=== PATIENT | male | born 1935 | race Caucasian/White ===

== ENCOUNTER → 2023-03-08 12:48 | Outpatient (CLI) | payer MEDICARE, OTHER, SELFPAY ==
--- NOTE | 2023-03-08 | DI.CT.S_ITS ---
PROCEDURE: CT HEAD/BRAIN WO CON INDICATIONS: SUBDURAL HEMATOMA TECHNIQUE: Noncontrast 4.5 mm thick angled axial sections acquired from the foramen magnum to the vertex, with coronal and sagittal reformats. For radiation dose reduction, the following was used: automated exposure control, adjustment of mA and/or kV according to patient size. COMPARISON: Outside Facility, RG, CT HEAD W/O CONTRAST, 12/20/2022, 10:27. Outside Facility, RG, CT HEAD W/O CONTRAST, 11/07/2022, 15:22. Outside Facility, RG, CT HEAD W/O CONTRAST, 10/05/2022, 13:26. Outside Facility, RG, CT HEAD W/O CONTRAST, 10/02/2022, 11:41. [facility], MR, BRAIN W&WO CONTRAST, 08/28/2016, 12:54. [facility], CT, HEAD WITHOUT CONTRAST, 09/03/2015, 20:39. FINDINGS: Image quality: Excellent. CSF spaces: Basal cisterns are patent. No extra-axial fluid collections. The ventricles are symmetric in size and shape. Brain: This patient previously had a right-sided subdural hematoma. No residual or recurrent hematoma is seen on these images. There is an extra-axial vein seen anteriorly and on the right, as on series 2, image 12. No intracranial masses. There is cerebral volume loss for age, with resultant ventricular and sulcal prominence. There are periventricular and deep white matter chronic small vessel ischemic changes. There is intracranial internal carotid artery atherosclerosis. Skull and face: Calvarium and visualized facial bones appear intact, without suspicious lesions. Sinuses: Visualized sinuses and mastoids are clear. IMPRESSION: No residual or recurrent subdural hematoma is seen in this patient with a prior right-sided subdural hematoma. Dictated by: Nic Holder M.D. on 03/10/2023 at 9:52 Approved by: Nic Holder M.D. on 03/10/2023 at 9:56
== END ==
PROVIDERS: PCP Internal Medicine; Referring Provider Neurological Surgery; Visit Provider Neurological Surgery
DX: S06.5XAA Traumatic subdural hemorrhage with loss of consciousness status unknown, initial encounter
CPT/HCPCS: 70450

== ENCOUNTER → 2023-04-22 14:19 | Outpatient (CLI) | payer MEDICARE, OTHER, SELFPAY ==
[2023-04-22 15:35] LABS: Hemoglobin A1C% w Est Avg Glu 6.9 % (4.0-6.0)
== END ==
PROVIDERS: PCP Student in an Organized Health Care Education/Training Program; Referring Provider Student in an Organized Health Care Education/Training Program; Visit Provider Student in an Organized Health Care Education/Training Program
DX: Z13.1 Encounter for screening for diabetes mellitus (principal)
CPT/HCPCS: 36415; 83036

== ENCOUNTER → 2023-07-10 08:02 | Outpatient (CLI) | payer MEDICARE, SELFPAY ==
[2023-07-10 09:15] LABS: Alanine Aminotransferase 15 IU/L (<50); Albumin Globulin Ratio 1.5 (1.0-2.8); Alkaline Phosphatase 70 U/L (38-126); Aspartate Aminotransferase 26 IU/L (17-59); BUN Creatinine Ratio 32.4 (6-22); Bilirubin Total 0.6 mg/dL (0.2-1.3); Blood Urea Nitrogen 34 mg/dL (9-20); Calcium 10.1 mg/dL (8.4-10.2); Carbon Dioxide 29 mmol/L (22-32); Chloride 104 mmol/L (98-107); Estimated Glomerular Filt Rate > 60 mL/min (>60); Globulin 2.6 g/dL (1.7-4.1); Glucose 132 mg/dL (80-110); HEMOLYSIS < 15 (0-50); Potassium 4.9 mmol/L (3.4-5.1); Sodium 137 mmol/L (137-145); Total Protein 6.6 g/dL (6.3-8.2)
== END ==
PROVIDERS: PCP Student in an Organized Health Care Education/Training Program; Referring Provider Student in an Organized Health Care Education/Training Program; Visit Provider Student in an Organized Health Care Education/Training Program
DX: E11.9 Type 2 diabetes mellitus without complications (principal); U07.1 COVID-19
CPT/HCPCS: 36415; 80053

== ENCOUNTER 2023-09-21 14:26 | Emergency (ER) | payer MEDICARE, SELFPAY ==
[2023-09-21] VITALS (12 sets, daily range): BP systolic 129–165; BP diastolic 66–87; PULSE 51–59; RESP 16–24; TEMP 36.3; O2SAT 92–97; BMI 23.6
--- NOTE | 2023-09-21 14:35 | DI.RAD.S_ITS ---
PROCEDURE: XR CHEST 1V INDICATIONS: chest pain TECHNIQUE: One view of the chest was acquired. COMPARISON: [facility], , CHEST 1 VIEW, 06/22/2014, 15:05. FINDINGS: Surgical changes and devices: None. Lungs and pleura: Lungs are clear. No pleural effusions or pneumothorax. Mediastinum: Mediastinal contours appear normal. Heart size is enlarged. Bones and chest wall: No suspicious bony lesions. Overlying soft tissues appear unremarkable. IMPRESSION: Cardiomegaly. No acute cardiopulmonary findings Approved by: Quan Valladares M.D. on 09/21/2023 at 15:29
[2023-09-21 14:59] LABS: Add Manual Diff / Slide Review NO; Basophils Absolute Auto 100 /uL (0-100); Basophils Percent Auto 0.8 % (0-2); Eosinophils Absolute Auto 200 /uL (0-450); Eosinophils Percent Auto 2.2 % (2-4); Hematocrit 40.7 % (41-53); Hemoglobin 13.7 g/dL (13.5-17.5); Lymphocytes Absolute Auto 2300 /uL (1100-4500); Lymphocytes Percent Auto 26.4 % (25-40); Mean Corpuscular HGB Conc 33.8 % (30-36); Mean Corpuscular Hemoglobin 31.7 PG (26-34); Monocytes Absolute Auto 700 /uL (0-900); Monocytes Percent Auto 8.4 % (3-14); Neutrophils Absolute Auto 5400 /uL (1500-7000); Neutrophils Percent Auto 62.2 % (50-75); Platelet Count 200 X10^3/uL (150-400); Red Blood Cell Count 4.33 X10^6/uL (4.5-5.9); Red Cell Distribution Width 13.8 % (11.6-14.8); White Blood Cell Count 8.6 X10^3/uL (4.5-11.0)
[2023-09-21 15:13] LABS: Prothrombin Time 11.7 SECONDS (9.4-12.5)
[2023-09-21 15:16] LABS: PTT Partial Thromboplastin Tim 33 SECONDS (25.1-36.5)
[2023-09-21 15:18] LABS: Alanine Aminotransferase 20 IU/L (<50); Albumin 4.2 g/dL (3.5-5.0); Albumin Globulin Ratio 1.4 (1.0-2.8); Alkaline Phosphatase 65 U/L (38-126); Aspartate Aminotransferase 28 IU/L (17-59); BUN Creatinine Ratio 38.8 (6-22); Bilirubin Total 0.6 mg/dL (0.2-1.3); Blood Urea Nitrogen 40 mg/dL (9-20); Calcium 10.2 mg/dL (8.4-10.2); Carbon Dioxide 24 mmol/L (22-32); Chloride 107 mmol/L (98-107); Creatine Kinase 68 U/L (55-170); Estimated Glomerular Filt Rate > 60 mL/min (>60); Globulin 2.9 g/dL (1.7-4.1); Glucose 99 mg/dL (80-110); HEMOLYSIS < 15 (0-50); Lipase 115 U/L (23-300); Magnesium 2.1 mg/dL (1.6-2.3); Potassium 5.2 mmol/L (3.4-5.1); Sodium 139 mmol/L (137-145); Total Protein 7.1 g/dL (6.3-8.2)
[2023-09-21 15:29] LABS: Troponin I 0.044 ng/mL (0.01-0.034)
--- NOTE | 2023-09-21 15:56 | DI.CT.S_ITS ---
PROCEDURE: CT HEAD/BRAIN WO CON INDICATIONS: headache w/ h/o subdural TECHNIQUE: Noncontrast 4.5 mm thick angled axial sections acquired from the foramen magnum to the vertex, with coronal and sagittal reformats. For radiation dose reduction, the following was used: automated exposure control, adjustment of mA and/or kV according to patient size. COMPARISON: [facility], CT, CT HEAD/BRAIN WO CON, 03/08/2023, 12:56. FINDINGS: Image quality: Diagnostic. CSF spaces: Basal cisterns are patent. No extra-axial fluid collections. Ventricles are normal in size and shape. Brain: No midline shift. No intracranial masses or hemorrhage. Hawkins-white matter interface is normal. Moderate cerebral and cerebellar volume loss with multifocal white matter chronic ischemic change noted. Atherosclerotic calcification noted associated with cavernous segments of both internal carotid arteries. Skull and face: Calvarium and visualized facial bones are intact, without suspicious lesions. Sinuses: Visualized sinuses and mastoids are clear. IMPRESSION: Moderate atrophy and white matter chronic ischemic change without intracranial hemorrhage or mass effect. Approved by: Quan Valladares M.D. on 09/21/2023 at 15:16
[2023-09-21 16:46] LABS: C-Reactive Protein Quant < 0.5 mg/dL (<1.0)
[2023-09-21 16:52] LABS: Erythrocyte Sedimentation Rate 17 MM/HR (0-15)
--- NOTE | 2023-09-21 16:54 | ED_ITS ---
HPI - Dizziness General Chief Complaint: Dizziness Stated Complaint: Headache, blurred vision, dizzyness, aches Time Seen by Provider: 09/21/23 16:53 Source: patient Mode of arrival: Ambulatory Limitations: no limitations History of Present Illness HPI Narrative: 88-year-old male with history of coronary artery disease, hypertension, dyslipidemia, hypothyroidism, diabetes, polymyalgia rheumatica with complaint of headache similar to when he had a subdural. Patient states that occurred after he had a fall. He has had headache for about 3 days but has not increased in intensity. 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 He states his dizziness usually feels consistent with like he might fall. Patient states cloudy vision but no loss of vision. States no fevers or chills, no cold cough congestion. He denies any numbness tingling or weakness of his extremities. He states he has been ambulating. He denies any chest pain or pressure shortness of breath but notes that his joints in his shoulders, pelvis and down his knees has been achy and uncomfortable but feels muscular. He denies any shortness of breath he denies any anterior chest pain. Denies any nausea or vomiting. Patient is on aspirin, losartan, metoprolol, Zetia, levothyroxine and liothyronine, metformin and has had 3 cardiac stents. He used to be on prednisone for many years has been off it for some time for PMR. Patient states allergic to Cipro, testosterone and some lipid medication. No tobacco, alcohol or recreational drugs. Dr. Beach is his primary care physician. Related Data Home Medications Medication Instructions Recorded Confirmed aspirin 81 mg tablet,delayed 81 mg PO QDAY ##0 09/10/11 09/03/23 release ezetimibe 10 mg tablet 10 mg PO DAILY 04/22/23 09/03/23 liothyronine 5 mcg tablet 5 mcg PO DAILY 04/22/23 09/03/23 losartan 25 mg tablet 25 mg PO DAILY 04/22/23 09/03/23 metoprolol succinate 25 mg 25 mg PO DAILY 04/22/23 09/03/23 tablet,extended release 24 hr Previous Rx's Medication Instructions Recorded metformin 500 mg tablet 500 mg PO DAILY #90 tabs 07/17/23 tadalafil 5 mg tablet (Cialis) 5 mg PO DAILY #30 tabs 09/03/23 levothyroxine 75 mcg tablet 75 mcg PO DAILY #90 tabs 09/11/23 Allergies Allergy/AdvReac Type Severity Reaction Status Date / Time ciprofloxacin [From [facility]] Allergy Intermediate Verified 09/21/23 14:30 hydrocortisone Allergy Intermediate Verified 09/21/23 14:30 [From [facility]] testosterone [TESTOSTERONE] Allergy Intermediate Verified 09/21/23 14:30 tetracycline [TETRACYCLINE] Allergy Intermediate Verified 09/21/23 14:30 LIPID Allergy Unknown Uncoded 07/17/23 11:02 Review of Systems Review of Systems ROS Unobtainable: All systems reviewed & are unremarkable except as noted in HPI and below Patient History Medical History Bladder outlet obstruction History of tobacco use Lower urinary tract symptoms Inguinal hernia bilateral, non-recurrent Rosacea Rheumatoid arthritis Sleep apnea Headache Leg pain Osteopenia MGUS (monoclonal gammopathy of unknown significance) Hearing loss Cataracts, bilateral Benign prostate hyperplasia Low testosterone Hypothyroidism (~1957) Hypertension Skin cancer Type 2 diabetes mellitus Hx of subdural hematoma Monoclonal gammopathies Polymyalgia rheumatica Hx of acute myocardial infarction (~2019) Dizziness Benign paroxysmal vertigo Surgical History H/O vasectomy Anesthesia Subdural hematoma (~08/2022) History of coronary artery stent placement (~2019) S/P TURP (~2020) Family History Mother Stroke Brother History of heart disease Stroke Grandfather History of heart disease Grandmother Tuberculosis Social History Smoking Status: Former smoker Smoking Status: Former smoker Substance Use Type: does not use Exam Narrative Exam Narrative: GEN: well nourished, well appearing male, alert and oriented x 3, patient appears to be in mild distress. HEENT: Atraumatic, pupils are equal round reactive to light, extraocular movements are intact, nares are clear, TMs are clear with no fluid, there is no conjunctival pallor. Throat is clear without any exudates, erythema, tonsillar enlargement or uvular deviation, no meningeal signs. HEART: Regular rate and rhythm without murmur, clicks, rubs. No carotid bruits, pulses are equal in upper and lower extremities LUNGS:Lungs clear to auscultation, no wheezes, rales, crackles, chest moves symmetrically ABD:bowel sounds normal, soft, non-tender, no guarding, rebound, rigidity, no masses noted, no hepatosplenomegaly :No CVA tenderness MSCL: Non-tender, no muscle atrophy, muscles strength 5/5 upper and lower extremities, full range of motion, normal gait NEURO:CN 2-12 intact, sensation normal. SKIN: No rash, erythema or other skin changes Initial Vital Signs Initial Vital Signs: Vital Signs Temperature 97.3 F L 09/21/23 14:30 Pulse Rate 56 L 09/21/23 14:30 Respiratory Rate 18 09/21/23 14:30 Blood Pressure 154/71 H 09/21/23 14:30 Pulse Oximetry 96 09/21/23 14:30 Oxygen Delivery Method Room Air 09/21/23 14:30 Course Orders Ordered: Discontinued Medications Aspirin (Aspirin 81 Mg Chew Tab) 324 mg PO NOW ONE Stop: 09/21/23 14:36 Last Admin: 09/21/23 15:15 Dose: Not Given Documented By: VEENA Sodium Chloride (Normal Saline 0.9%) 1,000 mls @ 1,000 mls/hr IV BOLUS ONE Stop: 09/21/23 18:21 Last Infusion: 09/21/23 18:36 Dose: Infused Documented By: Admin: 09/21/23 17:33 Dose: 1,000 mls/hr Documented By: WADE Ketorolac Tromethamine (Ketorolac 30 Mg/Ml Vial) 15 mg IV NOW ONE Stop: 09/21/23 17:23 Last Admin: 09/21/23 17:40 Dose: 15 mg Documented By: WADE Vital Signs Vital signs: Vital Signs - 8 hr 09/21/23 14:30 09/21/23 14:54 09/21/23 14:54 Temperature 97.3 F L Pulse Rate 56 L 53 L Respiratory Rate 18 16 Blood Pressure 154/71 H 136/75 Pulse Oximetry 96 92 Oxygen Delivery Method Room Air Room Air 09/21/23 15:00 09/21/23 15:00 09/21/23 15:30 Temperature Pulse Rate 55 L 58 L Respiratory Rate 22 21 Blood Pressure 129/73 Pulse Oximetry 96 95 Oxygen Delivery Method Room Air 09/21/23 15:30 09/21/23 16:09 09/21/23 16:24 Temperature Pulse Rate Respiratory Rate 20 Blood Pressure 131/70 139/70 Pulse Oximetry Oxygen Delivery Method 09/21/23 16:24 09/21/23 16:30 09/21/23 16:30 Temperature Pulse Rate 54 L 52 L Respiratory Rate 24 20 Blood Pressure 136/66 Pulse Oximetry 97 97 Oxygen Delivery Method 09/21/23 17:00 09/21/23 17:00 09/21/23 17:30 Temperature Pulse Rate 52 L 56 L Respiratory Rate 20 Blood Pressure 137/87 Pulse Oximetry 97 Oxygen Delivery Method Room Air 09/21/23 17:31 09/21/23 17:31 Temperature Pulse Rate 51 L Respiratory Rate Blood Pressure 165/83 H Pulse Oximetry Oxygen Delivery Method MDM - Dizziness Lab Data 09/21/23 14:50 09/21/23 14:50 Labs: Lab Results 09/21/23 09/21/23 Range/Units 14:50 17:16 WBC 8.6 (4.5-11.0) X10^3/uL RBC 4.33 L (4.5-5.9) X10^6/uL Hgb 13.7 (13.5-17.5) g/dL Hct 40.7 L (41-53) % MCV 94.0 (80-100) fL MCH 31.7 (26-34) PG MCHC 33.8 (30-36) % RDW 13.8 (11.6-14.8) % Plt Count 200 (150-400) X10^3/uL Neut % (Auto) 62.2 (50-75) % Lymph % (Auto) 26.4 (25-40) % [place] % (Auto) 8.4 (3-14) % Eos % (Auto) 2.2 (2-4) % Baso % (Auto) 0.8 (0-2) % Neut # (Auto) 5400 (9006-8241) /uL Lymph # (Auto) 2300 (1113-3268) /uL [place] # (Auto) 700 (0-900) /uL Eos # (Auto) 200 (0-450) /uL Baso # (Auto) 100 (0-100) /uL ESR 17 H (0-15) MM/HR PT 11.7 (9.4-12.5) SECONDS INR 1.0 (0.9-1.3) APTT 33 (25.1-36.5) SECONDS Sodium 139 (137-145) mmol/L Potassium 5.2 H (3.4-5.1) mmol/L Chloride 107 (98-107) mmol/L Carbon Dioxide 24 (22-32) mmol/L BUN 40 H (9-20) mg/dL Creatinine 1.03 (0.66-1.25) mg/dL Estimated GFR > 60 (>60) mL/min BUN/Creatinine Ratio 38.8 H (6-22) Glucose 99 (80-110) mg/dL Calcium 10.2 (8.4-10.2) mg/dL Magnesium 2.1 (1.6-2.3) mg/dL Total Bilirubin 0.6 (0.2-1.3) mg/dL AST 28 (17-59) IU/L ALT 20 (<50) IU/L Alkaline Phosphatase 65 (38-126) U/L Total Creatine Kinase 68 (55-170) U/L Troponin I 0.044 H 0.061 H (0.01-0.034) ng/mL C-Reactive Protein < 0.5 (<1.0) mg/dL Total Protein 7.1 (6.3-8.2) g/dL Albumin 4.2 (3.5-5.0) g/dL Globulin 2.9 (1.7-4.1) g/dL Albumin/Globulin Ratio 1.4 (1.0-2.8) Lipase 115 (23-300) U/L Urine Dip Bedside Urine Glucose Negative Bedside Urine Bilirubin - Negative Bedside Urine Ketone - Negative Urine Specific [place] 1.015 Bedside Urine Occult Blood - Negative Bedside Urine pH 5.5 Bedside Urine Protein - Negative Bedside Urine Urobilinogen - Negative Bedside Urine Nitrite - Negative Bedside Urine Leukocytes - Negative Esterase Imaging Data CT scan - head: Radiologist's Impression: [address] [id number] [address] Scan Report Signed Patient: Dolph,Sameer I MR#: [id number] : 1935 Acct:[id number] Age/Sex: 88 / M Date of Service: 09/21/23 Loc: ED Accession Number: [id number] Procedure: CT head/brain wo con Ordering Provider: Anjelica Jackson D.O. PROCEDURE: CT HEAD/BRAIN WO CON INDICATIONS: headache w/ h/o subdural TECHNIQUE: Noncontrast 4.5 mm thick angled axial sections acquired from the foramen magnum to the vertex, with coronal and sagittal reformats. For radiation dose reduction, the following was used: automated exposure control, adjustment of mA and/or kV according to patient size. COMPARISON: [facility], CT, CT HEAD/BRAIN WO CON, 03/08/2023, 12:56. FINDINGS: Image quality: Diagnostic. CSF spaces: Basal cisterns are patent. No extra-axial fluid collections. Ventricles are normal in size and shape. Brain: No midline shift. No intracranial masses or hemorrhage. Hawkins-white matter interface is normal. Moderate cerebral and cerebellar volume loss with multifocal white matter chronic ischemic change noted. Atherosclerotic calcification noted associated with cavernous segments of both internal carotid arteries. Skull and face: Calvarium and visualized facial bones are intact, without suspicious lesions. Sinuses: Visualized sinuses and mastoids are clear. IMPRESSION: Moderate atrophy and white matter chronic ischemic change without intracranial hemorrhage or mass effect. Approved by: Quan Valladares M.D. on 09/21/2023 at 15:16 Chest x-ray: Radiologist's Impression: [address] [address] XRay Report Signed Patient: Sameer Xavier I MR#: [id number] : 1935 Acct:[id number] Age/Sex: 88 / M Date of Service: 09/21/23 Loc: ED Accession Number: [id number] Procedure: XR chest 1V Ordering Provider: Anjelica Jackson D.O. PROCEDURE: XR CHEST 1V INDICATIONS: chest pain TECHNIQUE: One view of the chest was acquired. COMPARISON: [facility], CR, CHEST 1 VIEW, 06/22/2014, 15:05. FINDINGS: Surgical changes and devices: None. Lungs and pleura: Lungs are clear. No pleural effusions or pneumothorax. Mediastinum: Mediastinal contours appear normal. Heart size is enlarged. Bones and chest wall: No suspicious bony lesions. Overlying soft tissues appear unremarkable. IMPRESSION: Cardiomegaly. No acute cardiopulmonary findings Approved by: Quan Valladares M.D. on 09/21/2023 at 15:29 ECG Data Attestation: I personally reviewed and interpreted this ECG as follows: Prior ECG tracings: available for review Interpretation: Sinus bradycardia rate of 57 RI 196 QRS 84 QTC 387, T-wave in 1 and AVF as inverted. Not appreciated on 09/03/2015 but is appreciated on 06/22/2014. No acute ST elevation. Nonspecific change otherwise. EKG 2. Sinus bradycardia rate of 50 RI 206 QRS 82 QTC of 400, no acute ST changes no dynamic changes. MDM Narrative Medical decision making narrative: 88-year-old male with complaint of headache feels similar to when had a subdural but patient states has not had any falls or injuries, he states that had conservative management where they monitored him and it ultimately resolved. He also notes joint pain in bilateral shoulders hips and pelvis. He denies anterior chest pain but notes when he had his prior heart attack it was across his shoulders. He also has a history of PMR has been off prednisone for some time. 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 Symptoms have been present for the past 3 days but slightly worse today. No fevers, no infectious changes appreciated. Patient deferred any respiratory panel for influenza, COVID or other viral illness testing. Head CT shows no acute change, no bleed. Chest x-ray shows cardiomegaly but no obvious infectious changes. Labs show white count 8.6, hemoglobin is 13 with platelets of 200, creatinine is 1.03, BUN 40, sodium is 139, potassium 5 2, chloride 107 with a CO2 of 24, glucose is 99- LFTs, initial troponin was 0.044. EKG shows changed from 2016 but similar to 2015 EKG. Patient states he does think this is cardiac in nature and feels differently. Repeat troponin is 0.06 Repeat EKG shows no acute changes. Patient states does not feel similar has just his shoulders across his chest. He feels much better after fluids and Toradol feels appropriate for discharge home had discussed possible influenza similar but defers testing. Discharge Plan Departure Patient Disposition: Home Clinical Impression: Headache Activity Restrictions/Additional Instructions: Follow up with your physician for recheck. I hope you continue to feel improved. You can have a dose of Tylenol this evening but avoid any naproxen or ibuprofen until tomorrow. Please return for new or worsening chest pain, shortness of breath, severe headaches, persistent vomiting, passing out, new swelling in her extremities or other new or concerning changes. Prescriptions: No Action metformin 500 mg tablet 500 mg PO DAILY Qty: 90 3RF metoprolol succinate 25 mg tablet extended release 24 hr 25 mg PO DAILY ezetimibe 10 mg tablet 10 mg PO DAILY losartan 25 mg tablet 25 mg PO DAILY liothyronine 5 mcg tablet 5 mcg PO DAILY aspirin 81 MG tablet,delayed release (DR/EC) 81 mg PO QDAY Qty: 0 levothyroxine 75 mcg tablet 75 mcg PO DAILY Qty: 90 0RF tadalafil [Cialis] 5 mg tablet 5 mg PO DAILY Qty: 30 12RF Referrals: Devi Beach MD [Primary Care Provider] - Stand Alone Forms: Patient Portal/API
[2023-09-21] MEDS: SODIUM CHLORIDE 0.9% 1,000 ML 1000 ML IV (17:33)
[2023-09-21] MEDS: KETOROLAC 30 MG/ML VIAL 15 MG IV (17:40)
[2023-09-21 17:46] LABS: Troponin I 0.061 ng/mL (0.01-0.034)
== END 2023-09-21 18:39 | disposition home or self-care (01) ==
PROVIDERS: Emergency Provider Emergency Medicine; PCP Student in an Organized Health Care Education/Training Program
DX: R51.9 Headache, unspecified (principal); R07.9 Chest pain, unspecified
CPT/HCPCS: 36415; 70450; 71045; 80053; 81003; 82550; 83690; 83735; 84484; 85025; 85610; 85651; 85730; 86140; 93005; 93010; 96361; 96374; 99284; 99285; J1885

== ENCOUNTER 2023-09-22 14:28 | Observation (INO) | payer MEDICARE, SELFPAY ==
[2023-09-22] VITALS (8 sets, daily range): BP systolic 143–173; BP diastolic 66–111; PULSE 49–56; RESP 14–31; TEMP 36.1–36.6; O2SAT 97–99; BMI 23.6
--- NOTE | 2023-09-22 14:58 | DI.RAD.S_ITS ---
PROCEDURE: XR CHEST 1V INDICATIONS: chest pain TECHNIQUE: One view of the chest was acquired. COMPARISON: , , XR CHEST 1V, 09/21/2023, 14:43. , , CHEST 1 VIEW, 06/22/2014, 15:05. FINDINGS: Surgical changes and devices: None. Lungs and pleura: Lungs are clear. No pleural effusions or pneumothorax. Mediastinum: Mediastinal contours appear normal. Heart size is enlarged, stable. Bones and chest wall: No suspicious bony lesions. Overlying soft tissues appear unremarkable. IMPRESSION: No acute cardiopulmonary abnormality is seen. Dictated by: Micky Pelayo M.D. on 09/22/2023 at 15:51 Approved by: Micky Pelayo M.D. on 09/22/2023 at 15:51
[2023-09-22 15:08] LABS: Add Manual Diff / Slide Review NO; Basophils Absolute Auto 100 /uL (0-100); Basophils Percent Auto 1.3 % (0-2); Eosinophils Absolute Auto 200 /uL (0-450); Eosinophils Percent Auto 2.5 % (2-4); Hematocrit 39.2 % (41-53); Hemoglobin 13.1 g/dL (13.5-17.5); Lymphocytes Absolute Auto 2100 /uL (1100-4500); Mean Corpuscular HGB Conc 33.4 % (30-36); Mean Corpuscular Hemoglobin 31.6 PG (26-34); Mean Corpuscular Volume 94.6 fL (80-100); Monocytes Absolute Auto 700 /uL (0-900); Monocytes Percent Auto 8.9 % (3-14); Neutrophils Absolute Auto 4500 /uL (1500-7000); Neutrophils Percent Auto 59.3 % (50-75); Platelet Count 181 X10^3/uL (150-400); Red Blood Cell Count 4.15 X10^6/uL (4.5-5.9); Red Cell Distribution Width 13.8 % (11.6-14.8); White Blood Cell Count 7.6 X10^3/uL (4.5-11.0)
[2023-09-22 15:18] LABS: Prothrombin Time 11.6 SECONDS (9.4-12.5)
[2023-09-22 15:21] LABS: PTT Partial Thromboplastin Tim 32 SECONDS (25.1-36.5)
[2023-09-22 15:27] LABS: Alanine Aminotransferase 18 IU/L (<50); Albumin 3.9 g/dL (3.5-5.0); Albumin Globulin Ratio 1.4 (1.0-2.8); Alkaline Phosphatase 57 U/L (38-126); Aspartate Aminotransferase 28 IU/L (17-59); BUN Creatinine Ratio 43.2 (6-22); Bilirubin Total 0.4 mg/dL (0.2-1.3); Blood Urea Nitrogen 38 mg/dL (9-20); Calcium 9.3 mg/dL (8.4-10.2); Carbon Dioxide 22 mmol/L (22-32); Chloride 111 mmol/L (98-107); Creatine Kinase 62 U/L (55-170); Estimated Glomerular Filt Rate > 60 mL/min (>60); Globulin 2.7 g/dL (1.7-4.1); Glucose 92 mg/dL (80-110); HEMOLYSIS 19 (0-50); Lipase 140 U/L (23-300); Magnesium 2.1 mg/dL (1.6-2.3); Potassium 4.5 mmol/L (3.4-5.1); Sodium 139 mmol/L (137-145); Total Protein 6.6 g/dL (6.3-8.2)
[2023-09-22 15:37] LABS: Troponin I 0.042 ng/mL (0.01-0.034)
--- NOTE | 2023-09-22 16:06 | PC.NURSE ---
Pt reports dizziness, headache, chest burning in bilateral shoulders and chest since yesterday. Pt seen here in ER yesterday. He has tried ibuprofen and tylenol with no relief.
[2023-09-22] MEDS: ASPIRIN 81 MG CHEW TAB 324 MG PO (16:18)
[2023-09-22 17:38] LABS: Troponin I 0.048 ng/mL (0.01-0.034)
--- NOTE | 2023-09-22 19:30 | PC.NURSE ---
New 4-plex nasal swab collected and walked down to lab and handed to rags laborer. Pt tolerated well.
[2023-09-22 20:07] LABS: COVID-19 CEPHEID 4-PLEX PCR Negative (Negative); Influenza A - CEPHEID Flu A NEGATIVE (NEGATIVE); Influenza B - CEPHEID Flu B NEGATIVE (NEGATIVE); Respiratory Syncytial Virus Negative (Negative)
--- NOTE | 2023-09-22 20:34 | ED_ITS ---
HPI - Chest Pain General Chief Complaint: Chest Pain Stated Complaint: Chest pain Time Seen by Provider: 09/22/23 18:00 Source: patient Mode of arrival: Ambulatory Limitations: no limitations History of Present Illness HPI narrative: Patient is an 88-year-old male. History of hypothyroid, idg-bsagtsb-dflhmtobk diabetes, hypertension, coronary artery disease and also a traumatic subarachnoid who is here for evaluation of bilateral chest discomfort that is pressure that radiates to both of his arms. He was also having a slight headache. He was seen here in the emergency department yesterday for similar symptoms. Had a workup. Head CT. Decision was made to discharge home. Was told to come back if his symptoms worsen or do not improve. He states that his symptoms have not improved over the past 24 hours the chest discomfort is not worse with palpation or movement. He states it feels similar to what he had when he would his heart attack 2 years ago. He is baseline shortness of breath and does not think that this is worse. He has no lower extremity swelling. No back discomfort. No vision changes. Related Data Home Medications Medication Instructions Recorded Confirmed aspirin 81 mg tablet,delayed 81 mg PO QDAY ##0 09/10/11 09/22/23 release ezetimibe 10 mg tablet 10 mg PO DAILY 04/22/23 09/22/23 liothyronine 5 mcg tablet 5 mcg PO DAILY 04/22/23 09/22/23 losartan 25 mg tablet 25 mg PO DAILY 04/22/23 09/22/23 docosahexaenoic acid (dha)-epa 120 1 cap PO DAILY 09/22/23 09/22/23 mg-180 mg capsule (Fish Oil) metoprolol succinate 25 mg 12.5 mg PO DAILY 09/22/23 09/22/23 tablet,extended release 24 hr vit C-vit V-okktcr-cgyypdox-omega 1 cap PO DAILY 09/22/23 09/22/23 3 100 mg-15 unit-2 mg-100 mg capsule Previous Rx's Medication Instructions Recorded metformin 500 mg tablet 500 mg PO DAILY #90 tabs 07/17/23 levothyroxine 75 mcg tablet 75 mcg PO DAILY #90 tabs 09/11/23 Allergies Allergy/AdvReac Type Severity Reaction Status Date / Time [facility]fl[facility] [[facility] Allergy Intermediate Verified 09/21/23 14:30 hydrocortisone Allergy Intermediate Verified 09/21/23 14:30 [From [facility]] testosterone [TESTOSTERONE] Allergy Intermediate Verified 09/21/23 14:30 tetracycline [TETRACYCLINE] Allergy Intermediate Verified 09/21/23 14:30 LIPID Allergy Unknown Uncoded 07/17/23 11:02 Review of Systems Review of Systems Narrative: See HPI Patient History Medical History Bladder outlet obstruction History of tobacco use Lower urinary tract symptoms Inguinal hernia bilateral, non-recurrent Rosacea Rheumatoid arthritis Sleep apnea Headache Leg pain Osteopenia MGUS (monoclonal gammopathy of unknown significance) Hearing loss Cataracts, bilateral Benign prostate hyperplasia Low testosterone Hypothyroidism (~1957) Hypertension Skin cancer Type 2 diabetes mellitus Hx of subdural hematoma Monoclonal gammopathies Polymyalgia rheumatica Hx of acute myocardial infarction (~2019) Dizziness Benign paroxysmal vertigo Surgical History H/O vasectomy Anesthesia Subdural hematoma (~08/2022) History of coronary artery stent placement (~2019) S/P TURP (~2020) Family History Mother Stroke Brother History of heart disease Stroke Grandfather History of heart disease Grandmother Tuberculosis Social History household members: spouse Smoking Status: Former smoker alcohol intake: never Smoking Status: Former smoker Substance Use Type: does not use Exam Initial Vital Signs Initial Vital Signs: Vital Signs Temperature 97.9 F 09/22/23 14:53 Pulse Rate 56 L 09/22/23 14:53 Respiratory Rate 18 09/22/23 14:53 Blood Pressure 154/74 H 09/22/23 14:53 Pulse Oximetry 97 09/22/23 14:53 Oxygen Delivery Method Room Air 09/22/23 14:53 Const General: cooperative, well developed and No ill appearing HENIL Head: normal to inspection and normocephalic Resp Effort & Inspection: normal respiratory effort Auscultation: clear to auscultation bilaterally Cardio Rate: regular rate Rhythm: regular rhythm GI Inspection: normal to inspection Skin General: no rashes or lesions noted Neuro General: patient alert, patient awake, patient oriented x3 and moves all extremities Extrem General: No edema Scores HEART Score Heart Score history: Slightly Suspicious Heart Score EKG: Non-Specific repolarization disturbance Heart Score Age: > or = 65 years old Heart Score risk factors: > 3 risk factors or hx of atherosclerotic disease Heart Score troponin: < or = to normal limit Heart Score Total: 5 Course Orders Ordered: ED Orders 09/22/23 14:58 XR chest 1V Stat EKG-12 Lead Stat 09/22/23 15:01 Complete Blood Count AUTO DIFF Stat Comprehensive Metabolic Panel Stat Lipase Stat Magnesium Stat PTT Partial Thromboplastin Mono Stat Prothrombin Time INR Stat Troponin & CK Cardiac Panel Stat 09/22/23 17:00 Troponin I Stat 09/22/23 19:26 Covid-19 + FLU A/B + RSV - PCR Stat Discontinued Medications Aspirin (Aspirin 81 Mg Chew Tab) 324 mg PO NOW ONE Stop: 09/22/23 14:59 Last Admin: 09/22/23 16:18 Dose: 243 mg Documented By: VEENA Vital Signs Vital signs: Vital Signs - 8 hr 09/22/23 16:30 09/22/23 17:30 09/22/23 18:00 Pulse Rate 49 L 52 L 54 L Respiratory Rate 26 H 24 Blood Pressure 146/69 H 143/66 H Pulse Oximetry 98 99 Oxygen Delivery Method Room Air Room Air 09/22/23 18:00 09/22/23 19:00 09/22/23 20:00 Pulse Rate 54 L 55 L 50 L Respiratory Rate 30 H 31 H 16 Blood Pressure 160/71 H 160/72 H 150/111 H Pulse Oximetry 98 99 Oxygen Delivery Method Room Air 09/22/23 20:30 Pulse Rate 52 L Respiratory Rate 14 Blood Pressure 158/104 H Pulse Oximetry 99 Oxygen Delivery Method MDM - Chest Pain Medical Records Data Attestation: I reviewed the patient's medical records. Lab Data Attestation: I reviewed the patient's lab results. 09/22/23 15:01 09/22/23 15:01 Labs: Lab Results 09/22/23 09/22/23 09/22/23 Range/Units 15:01 17:00 19:26 WBC 7.6 (4.5-11.0) X10^3/uL RBC 4.15 L (4.5-5.9) X10^6/uL Hgb 13.1 L (13.5-17.5) g/dL Hct 39.2 L (41-53) % MCV 94.6 (80-100) fL MCH 31.6 (26-34) PG MCHC 33.4 (30-36) % RDW 13.8 (11.6-14.8) % Plt Count 181 (150-400) X10^3/uL Neut % (Auto) 59.3 (50-75) % Lymph % (Auto) 28.0 (25-40) % Gove % (Auto) 8.9 (3-14) % Eos % (Auto) 2.5 (2-4) % Baso % (Auto) 1.3 (0-2) % Neut # (Auto) 4500 (8241-2620) /uL Lymph # (Auto) 2100 (7912-1483) /uL Gove # (Auto) 700 (0-900) /uL Eos # (Auto) 200 (0-450) /uL Baso # (Auto) 100 (0-100) /uL PT 11.6 (9.4-12.5) SECONDS INR 1.0 (0.9-1.3) APTT 32 (25.1-36.5) SECONDS Sodium 139 (137-145) mmol/L Potassium 4.5 (3.4-5.1) mmol/L Chloride 111 H (98-107) mmol/L Carbon Dioxide 22 (22-32) mmol/L BUN 38 H (9-20) mg/dL Creatinine 0.88 (0.66-1.25) mg/dL Estimated GFR > 60 (>60) mL/min BUN/Creatinine Ratio 43.2 H (6-22) Glucose 92 (80-110) mg/dL Calcium 9.3 (8.4-10.2) mg/dL Magnesium 2.1 (1.6-2.3) mg/dL Total Bilirubin 0.4 (0.2-1.3) mg/dL AST 28 (17-59) IU/L ALT 18 (<50) IU/L Alkaline Phosphatase 57 (38-126) U/L Total Creatine Kinase 62 (55-170) U/L Troponin I 0.042 H 0.048 H (0.01-0.034) ng/mL Total Protein 6.6 (6.3-8.2) g/dL Albumin 3.9 (3.5-5.0) g/dL Globulin 2.7 (1.7-4.1) g/dL Albumin/Globulin Ratio 1.4 (1.0-2.8) Lipase 140 (23-300) U/L SARS-CoV-2 (PCR) Negative (Negative) Influenza A (RT-PCR) Flu a negative (NEGATIVE) Influenza B (RT-PCR) Flu b negative (NEGATIVE) RSV (PCR) Negative (Negative) Imaging Data Chest x-ray: Radiologist's Impression: PROCEDURE: XR CHEST 1V INDICATIONS: chest pain TECHNIQUE: One view of the chest was acquired. COMPARISON: [facility], , XR CHEST 1V, 09/21/2023, 14:43. [facility], CHEST 1 VIEW, 06/22/2014, 15:05. FINDINGS: Surgical changes and devices: None. Lungs and pleura: Lungs are clear. No pleural effusions or pneumothorax. Mediastinum: Mediastinal contours appear normal. Heart size is enlarged, stable. Bones and chest wall: No suspicious bony lesions. Overlying soft tissues appear unremarkable. IMPRESSION: No acute cardiopulmonary abnormality is seen. ECG Data Attestation: I personally reviewed and interpreted this ECG as follows: Interpretation: Presentation EKG Sinus bradycardia Ventricular rate of 54 Normal axis When PAC Nonspecific ST T wave changes Repeat EKG Sinus rhythm Ventricular rate of 55 One PVC [address] T wave changes MDM Narrative Medical decision making narrative: Chest x-ray is unremarkable. Nonspecific changes on his EKG. Has a heart score of 5. Has not had risk stratification testing since his [place] 2 years ago. He was seen here in the emergency department yesterday. Troponin greater than 99th percentile but less than AMI cut off yesterday in his similar today. Given his history, age, heart score, troponin, EKG and his 2nd visit to the ER for same symptoms plan will be is to admit to the hospital for further risk stratification testing. Discussed the case with Dr. Hastings hospitalist on-call who will admit. Discussed the need for admission with the patient. He expressed understanding and agreement with plan. Discharge Plan Departure Patient Disposition: Admitted as Observation Clinical Impression: Chest pain Admit Date/Time: 09/22/23 20:49 Admit Provider: Surendra Day
--- NOTE | 2023-09-22 20:36 | PC.NURSE ---
solids control technician at bedside.
[2023-09-23 02:00] VITALS: BP 119/52; PULSE 62; RESP 18; TEMP 36.2; O2SAT 97
--- NOTE | 2023-09-23 02:49 | P.HP_ITS ---
History of Present Illness History of Present Illness Chief complaint: Chest pain Narrative: 88 y/o with PMH of CAD, 3 stents in 2019 in [facility], apparently unremarkable nuclear stress test 1-2 years ago, who was seen yesterday in the ED with chest pain. Today his symptoms were still present and he came again. He describes some vague feeling in the chest radiating to both arms and dizziness. Initial workup showing elevated troponins and hypertension in the ED. Placed in observation on telemetry Echocardiogram pending [facility] Medical History Bladder outlet obstruction History of tobacco use Lower urinary tract symptoms Inguinal hernia bilateral, non-recurrent Rosacea Rheumatoid arthritis Sleep apnea Headache Leg pain Osteopenia MGUS (monoclonal gammopathy of unknown significance) Hearing loss Cataracts, bilateral Benign prostate hyperplasia Low testosterone Hypothyroidism (~1957) Hypertension Skin cancer Type 2 diabetes mellitus Hx of subdural hematoma Monoclonal gammopathies Polymyalgia rheumatica Hx of acute myocardial infarction (~2019) Dizziness Benign paroxysmal vertigo Surgical History H/O vasectomy Anesthesia Subdural hematoma (~08/2022) History of coronary artery stent placement (~2019) S/P TURP (~2020) Family History Mother Stroke Brother History of heart disease Stroke Grandfather History of heart disease Grandmother Tuberculosis Social History household members: spouse Smoking Status: Former smoker alcohol intake: never Meds Home Medications and Allergies Home Medications Medication Instructions Recorded Confirmed Type aspirin 81 mg tablet,delayed 81 mg PO QDAY ##0 09/10/11 09/22/23 History release ezetimibe 10 mg tablet 10 mg PO DAILY 04/22/23 09/22/23 History liothyronine 5 mcg tablet 5 mcg PO DAILY 04/22/23 09/22/23 History losartan 25 mg tablet 25 mg PO DAILY 04/22/23 09/22/23 History metformin 500 mg tablet 500 mg PO DAILY #90 tabs 07/17/23 09/22/23 Rx levothyroxine 75 mcg tablet 75 mcg PO DAILY #90 tabs 09/11/23 09/22/23 Rx docosahexaenoic acid (dha)-epa 120 1 cap PO DAILY 09/22/23 09/22/23 History mg-180 mg capsule (Fish Oil) metoprolol succinate 25 mg 12.5 mg PO DAILY 09/22/23 09/22/23 History tablet,extended release 24 hr vit C-vit P-ppbjsh-qsojppfv-omega 1 cap PO DAILY 09/22/23 09/22/23 History 3 100 mg-15 unit-2 mg-100 mg capsule Allergies Allergy/AdvReac Type Severity Reaction Status Date / Time ciprofloxacin [From [facility]] Allergy Intermediate Verified 09/21/23 14:30 hydrocortisone Allergy Intermediate Verified 09/21/23 14:30 [From [facility]] testosterone [TESTOSTERONE] Allergy Intermediate Verified 09/21/23 14:30 tetracycline [TETRACYCLINE] Allergy Intermediate Verified 09/21/23 14:30 LIPID Allergy Unknown Uncoded 07/17/23 11:02 Review of Systems Constitutional Comments: w/o fever or chills Cardiovascular Comments: see HPI Respiratory Comments: w/o shortness of breath Genitourinary Comments: w/o dysuria Neurologic Comments: resolved headache Exam Vital Signs (past 8 hours): - 09/22/23 19:00 09/22/23 20:00 09/22/23 20:30 Temperature Pulse Rate 55 L 50 L 52 L Respiratory Rate 31 H 16 14 Blood Pressure 160/72 H 150/111 H 158/104 H Pulse Oximetry 98 99 99 Oxygen Delivery Method Room Air Oxygen Flow Rate 09/22/23 21:30 09/22/23 22:06 09/23/23 02:00 Temperature 97.0 F L 97.1 F L Pulse Rate 54 L 62 Respiratory Rate 20 18 Blood Pressure 173/86 H 119/52 L Pulse Oximetry 99 97 Oxygen Delivery Method Room Air Oxygen Flow Rate 0 Oxygen Delivery Method Room Air Oxygen Flow Rate 0 Const Other: Sitting in bed in no distress HENMT Other: w/o JVD or thyromegaly Resp Other: Normal respiratory effort Cardio Other: RRR, w/o murmurs GI Other: w/o distension Skin Other: w/o rashes Extrem Other: w/o swelling Objective ECG Impression: Sinus bradycardia 55, nonspecific ST T wave changes Labs 09/22/23 15:01 09/22/23 15:01 Labs: Laboratory Results - last 24 hr 09/22/23 09/22/23 09/22/23 15:01 17:00 19:26 WBC 7.6 RBC 4.15 L Hgb 13.1 L Hct 39.2 L MCV 94.6 MCH 31.6 MCHC 33.4 RDW 13.8 Plt Count 181 Neut % (Auto) 59.3 Lymph % (Auto) 28.0 George % (Auto) 8.9 Eos % (Auto) 2.5 Baso % (Auto) 1.3 Neut # (Auto) 4500 Lymph # (Auto) 2100 George # (Auto) 700 Eos # (Auto) 200 Baso # (Auto) 100 PT 11.6 INR 1.0 APTT 32 Sodium 139 Potassium 4.5 Chloride 111 H Carbon Dioxide 22 BUN 38 H Creatinine 0.88 Estimated GFR > 60 BUN/Creatinine Ratio 43.2 H Glucose 92 Calcium 9.3 Magnesium 2.1 Total Bilirubin 0.4 AST 28 ALT 18 Alkaline Phosphatase 57 Total Creatine Kinase 62 Troponin I 0.042 H 0.048 H Total Protein 6.6 Albumin 3.9 Globulin 2.7 Albumin/Globulin Ratio 1.4 Lipase 140 SARS-CoV-2 (PCR) Negative Influenza A (RT-PCR) Flu a negative Influenza B (RT-PCR) Flu b negative RSV (PCR) Negative Assessment & Plan Assessment and plan (1) Chest pain: Status: Acute (2) CAD (coronary artery disease): Status: Acute (3) Hypertension: Status: Acute (4) Type 2 diabetes mellitus: Qualifiers: Diabetes mellitus custodial insulin use: without custodial use Diabetes mellitus complication status: without complication Qualified Code(s): E11.9 - Type 2 diabetes mellitus without complications Status: Acute (5) Hypothyroidism: Status: Acute Assessment & Plan narrative: 1. Chest Pain / CAD / Hx of PCI in [place] /HTN - mildly elevated troponins - non-specific EKG changes - placed in observation, echocardiogram pending - uncontrolled HTN initially, matching headache, continuing Toprol XL and Losartan - statin, zetia, fish oil 2. DM - SS, Metformin held in case he will need an angiogram 3. Hypothyroidism - Cytomel, Synthroid, TSH pending DVT prophylaxis - Lovenox Quality VTE Deep Vein Thrombosis/Pulmonary Embolism Present on Admission: No
--- NOTE | 2023-09-23 03:22 | DI.ECHO.S_ITS ---
[place] [facility]---------+ [facility] +---------+ : : [address] : : : : [id number] : : : : Phone: [phone] Echocardiogram Report + :Name: BHUMI JUAREZ I Study Date: 09/23/2023 Height: 68 in : :[facility] ReadingLocation: Weight: 155 lb : : Gender: Male BSA: 1.8 m2 : :: 1935 Age: 88 yrs BP: 119/52 mmHg: :Reason For Study: CHEST PAIN : :Ordering Physician: MELECIO CRUMP, : :SHUKRI BOWDEN Performed By: Ananya Munoz : :Referring: SHUKRI ARAYA MD : + Interpretation Summary 1) Normal left ventricular thickness and size with low normal systolic function (EF 50-55%). 2) Normal right ventricular size and function. 3) There is mild to moderate aortic regurgitation. 4) There is mild to moderate mitral regurgitation. 5) No prior Echo available for comparison. Procedure: A two-dimensional transthoracic echocardiogram with color flow and Doppler was performed. The study quality was technically adequate. There is no prior echocardiogram noted for this patient. There was a short run of tachycardia reaching 106bpm. The patient was in sinus bradycardia with heart rates between 47-58 bpm during the exam. Left Ventricle: The left ventricle is normal in size and wall thickness. The ejection fraction is estimated to be 50-55%. There are no focal wall motion abnormalities. Diastolic parameters suggest a relaxation abnormality of the left ventricle, consistent with probable normal filling pressures. Right Ventricle: The right ventricle is normal in size and function. Atria: The left atrium is moderately dilated. Right atrial size is normal. There is no Doppler evidence for an interatrial shunt. Mitral Valve: There is a flat closure plane of the the mitral valve leaflets. There is mild to moderate mitral regurgitation. The mitral regurgitant jet is eccentrically directed. Aortic Valve: The aortic valve is trileaflet. The aortic valve opens well. There is no aortic valve stenosis. There is mild to moderate aortic regurgitation. Tricuspid Valve: The tricuspid valve is normal in structure and function. There is mild tricuspid regurgitation. The right ventricular systolic pressure is estimated to be at least 33 mmHg based on an estimated right atrial pressure of 3 mm Hg. Pulmonic Valve: The pulmonic valve leaflets are thin and pliable; valve motion is normal. There is mild pulmonic regurgitation. Great Vessels: The aortic root is normal size. The ascending aorta is at the upper limits of normal in size. The IVC is of normal diameter and collapses greater than 50% with a sniff. This suggests a low right atrial pressure of 3 mm Hg. Pericardium/ Pleura There is no pericardial effusion. There is no pleural effusion. MMode/2D Measurements & Calculations LVIDd: 5.1 cm LVOT diam: 2.2 cm LVIDs: 3.6 cm Ao root diam: 3.9 cm FS: 28.3 % asc Aorta Diam: 3.9 cm IVSd: 0.99 cm Ao Arch Diam (Prox Trans): 3.2 cm LVPWd: 0.91 cm LV johnson. diameter/BSA (cm/m^2): 2.8 LV sys. diameter/BSA (cm/m^2): 2.0 LA A2 area: 21.9 cm2 RA long axis: 6.2 cm LA A4 area: 20.4 cm2 RA area: 18.6 cm2 LA length (vol): 5.2 cm RA vol: 47.6 ml LA vol: 73.5 ml RA : 25.9 ml/m2 LA vol index: 40.1 ml/m2 IVC diam: 1.8 cm RVD1 (basal): 3.7 cm RVD2 (mid): 3.1 cm TAPSE: 1.8 cm Doppler Measurements & Calculations Ao V2 max: 130.6 cm/sec LVOT Max Dewey: 91.5 cm/sec Ao V2 mean: 95.4 cm/sec LV V1 max P.4 mmHg Ao max P.8 mmHg LV V1 VTI: 18.1 cm Ao mean P.0 mmHg GENESIS(I,D): 2.3 cm2 Ao V2 VTI: 28.7 cm GENESIS(V,D): 2.6 cm2 sev ratio: 0.63 GENESIS indexed to BSA (cm^2/m^2): 1.3 AI P1/2t: 957.0 msec AI dec slope: 126.0 cm/sec2 MV E max dewey: 62.6 cm/sec TR max dewey: 273.7 cm/sec MV A max dewey: 64.2 cm/sec TR max P.0 mmHg MV E/A: 0.97 PA V2 max: 79.0 cm/sec Med Peak E' Dewey: 4.9 cm/sec PA V2 mean: 53.6 cm/sec E/E' med: 12.8 PA mean P.3 mmHg Lat Peak E' Dewey: 5.4 cm/sec PA pr(Accel): 44.7 mmHg E/E' lat: 11.5 E/e' average: 12.2 MV dec time: 0.35 sec MR ERO: 0.15 cm2 MR PISA: 2.2 cm2 SV(LVOT): 67.0 ml MR flow rate: 84.7 cm3/sec MR PISA radius: 0.59 cm Reading Physician:08:39 AM
[2023-09-23 05:13] LABS: Add Manual Diff / Slide Review NO; Basophils Absolute Auto 100 /uL (0-100); Eosinophils Absolute Auto 300 /uL (0-450); Eosinophils Percent Auto 3.9 % (2-4); Hematocrit 38.5 % (41-53); Hemoglobin 13.1 g/dL (13.5-17.5); Lymphocytes Absolute Auto 2200 /uL (1100-4500); Lymphocytes Percent Auto 31.8 % (25-40); Mean Corpuscular Hemoglobin 31.8 PG (26-34); Mean Corpuscular Volume 93.5 fL (80-100); Monocytes Absolute Auto 700 /uL (0-900); Monocytes Percent Auto 10.1 % (3-14); Neutrophils Absolute Auto 3700 /uL (1500-7000); Neutrophils Percent Auto 53.2 % (50-75); Platelet Count 176 X10^3/uL (150-400); Red Blood Cell Count 4.11 X10^6/uL (4.5-5.9); Red Cell Distribution Width 13.5 % (11.6-14.8)
[2023-09-23 05:29] LABS: BUN Creatinine Ratio 41.1 (6-22); Blood Urea Nitrogen 30 mg/dL (9-20); Calcium 9.4 mg/dL (8.4-10.2); Carbon Dioxide 23 mmol/L (22-32); Chloride 114 mmol/L (98-107); Estimated Glomerular Filt Rate > 60 mL/min (>60); Glucose 84 mg/dL (80-110); HEMOLYSIS < 15 (0-50); Potassium 4.1 mmol/L (3.4-5.1); Sodium 140 mmol/L (137-145)
[2023-09-23 06:17] VITALS: BP 128/69; PULSE 56; RESP 19; TEMP 36.4; O2SAT 96
[2023-09-23] MEDS: LEVOTHYROXINE 75 MCG TABLET PO (06:55)
[2023-09-23] MEDS: ACETAMINOPHEN 325 MG TABLET 650 MG PO ×2 (06:56→11:58)
[2023-09-23 08:00] VITALS: BP 147/78; PULSE 59; RESP 16; TEMP 36.1; O2SAT 96
[2023-09-23 08:47] LABS: Troponin I 0.044 ng/mL (0.01-0.034)
[2023-09-23 09:17] VITALS: BP 147/78; PULSE 56
[2023-09-23] MEDS: ASPIRIN EC 81 MG TABLET PO (09:17)
[2023-09-23] MEDS: FISH OIL 1,000 MG CAPSULE 1000 MG PO (09:17)
[2023-09-23] MEDS: LIOTHYRONINE 5 MCG TABLET PO (09:17)
[2023-09-23] MEDS: EZETIMIBE 10 MG TABLET PO (09:17)
[2023-09-23] MEDS: LOSARTAN 25 MG TABLET PO (09:17)
[2023-09-23 09:18] VITALS: BP 147/78; PULSE 56
[2023-09-23] MEDS: METOPROLOL ER 25 MG TABLET 12.5 MG PO (09:18)
[2023-09-23] MEDS: ENOXAPARIN 40 MG/0.4 ML SYRINGE SUBCUT (09:19)
--- NOTE | 2023-09-23 11:23 | PM.DS.1 ---
History of Present Illness History of Present Illness Chief complaint: Chest pain Narrative: 88 y/o with PMH of CAD, 3 stents in 2019 in [facility], apparently unremarkable nuclear stress test 1-2 years ago, who was seen yesterday in the ED with chest pain. Today his symptoms were still present and he came again. He describes some vague feeling in the chest radiating to both arms and dizziness. Initial workup showing elevated troponins and hypertension in the ED. Placed in observation on telemetry Echocardiogram pending Discharge Providers Provider Date of admission: 09/22/23 20:49 Discharge Date: 09/23/23 Primary care physician: Devi Prieto MD Discharge provider: Myles Eddy DO Summary Hospital Course Discharge Diagnosis: 1. Chest Pain / CAD / Hx of PCI in [facility] /HTN - mildly elevated troponins, peaked at 0.060 and then down to 0.044 - non-specific EKG changes - placed in observation, echocardiogram shows EF 50-55% with mild-mod AR and MR, no WMA - uncontrolled HTN initially, matching headache, continuing Toprol XL and Losartan - statin, zetia, fish oil 2. DM - SS, Metformin held 3. Hypothyroidism - Cytomel, Synthroid, TSH normal Hospital Course: Admitted for chest pain. Spoke with Dr. Perez, who did not recommend nuclear stress test but instead medical management vs transfer for heart cath. Spoke with patient and he elected to f/up with his PCP in clinic in 2 hours to discuss if his symptoms could be due to a flare of his PMR, since he is also having similar aches in his legs like his shoulders and chest. Given troponin mildly elevated/indeterminate and chest pain has improved with normal echo and EKG, patient was discharged with strict precautions to return to the ED if his chest pain returns. Also given a script for nitro SL PRN. He has yet to establish with a trauma manager here since he recently moved to the area, so he will also obtain referral to see cardiology in clinic. Exam Vital Signs (past 8 hours): - 09/23/23 06:17 09/23/23 08:00 09/23/23 09:17 Temperature 97.6 F 97 F L Pulse Rate 56 L 59 L 56 L Respiratory Rate 19 16 Blood Pressure 128/69 147/78 H 147/78 H Pulse Oximetry 96 96 Oxygen Flow Rate 0 0 09/23/23 09:18 Temperature Pulse Rate 56 L Respiratory Rate Blood Pressure 147/78 H Pulse Oximetry Oxygen Flow Rate Oxygen Delivery Method Room Air Oxygen Flow Rate 0 Const Other: Sitting in bed in no distress HENNJ Other: w/o JVD or thyromegaly Resp Other: Normal respiratory effort Cardio Other: RRR, w/o murmurs GI Other: w/o distension Skin Other: w/o rashes Extrem Other: w/o swelling Objective Labs 09/23/23 04:41 09/23/23 04:41 Labs: Laboratory Results - last 24 hr 09/22/23 09/22/23 09/22/23 15:01 17:00 19:26 WBC 7.6 RBC 4.15 L Hgb 13.1 L Hct 39.2 L MCV 94.6 MCH 31.6 MCHC 33.4 RDW 13.8 Plt Count 181 Neut % (Auto) 59.3 Lymph % (Auto) 28.0 Posey % (Auto) 8.9 Eos % (Auto) 2.5 Baso % (Auto) 1.3 Neut # (Auto) 4500 Lymph # (Auto) 2100 Posey # (Auto) 700 Eos # (Auto) 200 Baso # (Auto) 100 PT 11.6 INR 1.0 APTT 32 Sodium 139 Potassium 4.5 Chloride 111 H Carbon Dioxide 22 BUN 38 H Creatinine 0.88 Estimated GFR > 60 BUN/Creatinine Ratio 43.2 H Glucose 92 Calcium 9.3 Magnesium 2.1 Total Bilirubin 0.4 AST 28 ALT 18 Alkaline Phosphatase 57 Total Creatine Kinase 62 Troponin I 0.042 H 0.048 H Total Protein 6.6 Albumin 3.9 Globulin 2.7 Albumin/Globulin Ratio 1.4 Lipase 140 TSH SARS-CoV-2 (PCR) Negative Influenza A (RT-PCR) Flu a negative Influenza B (RT-PCR) Flu b negative RSV (PCR) Negative 09/23/23 09/23/23 04:41 08:15 WBC 7.0 RBC 4.11 L Hgb 13.1 L Hct 38.5 L MCV 93.5 MCH 31.8 MCHC 34.0 RDW 13.5 Plt Count 176 Neut % (Auto) 53.2 Lymph % (Auto) 31.8 Posey % (Auto) 10.1 Eos % (Auto) 3.9 Baso % (Auto) 1.0 Neut # (Auto) 3700 Lymph # (Auto) 2200 Posey # (Auto) 700 Eos # (Auto) 300 Baso # (Auto) 100 PT INR APTT Sodium 140 Potassium 4.1 Chloride 114 H Carbon Dioxide 23 BUN 30 H Creatinine 0.73 Estimated GFR > 60 BUN/Creatinine Ratio 41.1 H Glucose 84 Calcium 9.4 Magnesium Total Bilirubin AST ALT Alkaline Phosphatase Total Creatine Kinase Troponin I 0.050 H 0.044 H Total Protein Albumin Globulin Albumin/Globulin Ratio Lipase TSH 1.20 SARS-CoV-2 (PCR) Influenza A (RT-PCR) Influenza B (RT-PCR) RSV (PCR) [facility] Medical History Bladder outlet obstruction History of tobacco use Lower urinary tract symptoms Inguinal hernia bilateral, non-recurrent Rosacea Rheumatoid arthritis Sleep apnea Headache Leg pain Osteopenia MGUS (monoclonal gammopathy of unknown significance) Hearing loss Cataracts, bilateral Benign prostate hyperplasia Low testosterone Hypothyroidism (~1957) Hypertension Skin cancer Type 2 diabetes mellitus Hx of subdural hematoma Monoclonal gammopathies Polymyalgia rheumatica Hx of acute myocardial infarction (~2019) Dizziness Benign paroxysmal vertigo Surgical History H/O vasectomy Anesthesia Subdural hematoma (~08/2022) History of coronary artery stent placement (~2019) S/P TURP (~2020) Family History Mother Stroke Brother History of heart disease Stroke Grandfather History of heart disease Grandmother Tuberculosis Social History household members: spouse Smoking Status: Former smoker alcohol intake: never Discharge Plan Discharge Plan Patient Disposition: Home Provider Discharge Comment: Your chest pain improved and all of your workup was reassuring. Your troponin was mildly elevated in the indeterminate range. Your heart echo looked good. Please f/up with your PCP for a cardiology referral. I've prescribed nitroglycerin for you in the future to take if you have chest pain. Discharge orders & Medications Prescriptions: New nitroglycerin 0.4 mg tablet, sublingual 0.4 mg sublingual Q5M PRN (Reason: chest pain) Qty: 20 0RF Rx Instructions: do not exceed 3 doses per episode Continued metformin 500 mg tablet 500 mg PO DAILY Qty: 90 3RF ezetimibe 10 mg tablet 10 mg PO DAILY losartan 25 mg tablet 25 mg PO DAILY liothyronine 5 mcg tablet 5 mcg PO DAILY aspirin 81 MG tablet,delayed release (DR/EC) 81 mg PO QDAY Qty: 0 levothyroxine 75 mcg tablet 75 mcg PO DAILY Qty: 90 0RF metoprolol succinate 25 mg tablet extended release 24 hr 12.5 mg PO DAILY Fish Oil 120-180 mg Capsule 1 cap PO DAILY vit C-vit [id number] ca-dujp-yu-mg Capsule 1 cap PO DAILY Follow up/Referrals: Devi Prieto MD [Primary Care Provider] - Visit Report/Discharge Packet Instructions: DI for Chest Pain Stand Alone Forms: Patient Portal/API, Stroke Signs & Symptoms Discharge Data Primary Care Provider: Devi Prieto Attending Provider: Surendra Day Admit Date/Time: 09/22/23 20:49 Quality VTE Deep Vein Thrombosis/Pulmonary Embolism Present on Admission: No
--- NOTE | 2023-09-23 11:48 | CM.DANOTE ---
Patient is an 88 yo male who was admitted on 09/22/23 for Chest Pain. Pt has [employer] for insurance and his PCP is Dr. Devi Prieto. EMR was reviewed. Per MD, pt with hx of CAD and stent placements 2020 and admitted for chest pain r/o, to have an Echo. SW met bedside with pt and explained role and he confirms he lives at home in [place] with his and pt is active and independent at baseline and drives and does not use DME for ambulation. Pt has been ambulating the hallways independently multiple times this morning already and pt's POLST and Advanced Directives on file. Pt denies any recent SNF or HH referrals and preference is to discharge home with spouse and does not anticipate any discharge needs at this time. Per MD, Echo is normal and pt medically stable to discharge home today with no identified barriers to discharge. Plan: Patient to discharge home today via family POV and outpt f/u and no further SW needs at this time. OBEY Hastings Discharge Planning/Care Management CM Discharge Assessment Start: 09/23/23 11:43 Freq: Status: Active Protocol: Document 09/23/23 11:43 BF (Rec: 09/23/23 11:48 BF [id number]) Discharge Planning Assessment Assigned Air Pumper OBEY Sanders DPOA/Assigned Designee Name spouse Jayda Contact Information [phone] Advance Directives? Yes Advance Directives on File No History Provided By Patient,Medical Record Has Patient been admitted in last 30 No days? Comment no hx admits at [facility] Prior Living Arrangements House Household Members spouse Type of transporation used prior to Drives own vehicle admit Independent with ADL's Yes Is patient alert and oriented? Yes Caregiver for Another No Barriers to Discharge No Discharge Plan Home Transportation Arrangement spouse can transport Referrals Initiated None needed Whiteboard Updated in Patient Room with Yes name and ext. # of Air Pumper Review Status In Process Please Provide Date Initial DC 09/22/23 Assessment Was Performed Next Review Type Continued Stay Review
== END 2023-09-23 12:13 | disposition home or self-care (01) ==
LOC: ED 20:49 → AC 20:50
PROVIDERS: Emergency Medicine; Student in an Organized Health Care Education/Training Program; Admitting Provider Internal Medicine; Emergency Provider Emergency Medicine; PCP Student in an Organized Health Care Education/Training Program; Referring Provider Emergency Medicine; Visit Provider Internal Medicine
DX: R07.9 Chest pain, unspecified (principal); I25.10 Atherosclerotic heart disease of native coronary artery without angina pectoris; I10 Essential (primary) hypertension; E11.9 Type 2 diabetes mellitus without complications; E03.9 Hypothyroidism, unspecified; Z11.52 Encounter for screening for COVID-19
CPT/HCPCS: 0241U; 36415; 71045; 80048; 80053; 82550; 82962; 83690; 83735; 84443; 84484; 85025; 85610; 85730; 93005; 93010; 93306; 96372; 99284; G0378; A9270; J1650

== ENCOUNTER → 2023-11-05 09:14 | Outpatient (CLI) | payer MEDICARE, SELFPAY ==
[2023-09-22 21:06] VITALS: BMI 23.6
--- NOTE | 2023-11-06 22:54 | DI.NM.S_ITS ---
DATE OF SERVICE: 11/06/2023 PROCEDURE: Pharmacological perfusion study. INDICATIONS: Chest pain with an underlying diabetes mellitus, hyperlipidemia. RADIOPHARMACEUTICAL: 26.0 mCi technetium-99m Myoview IV was injected at stress and 26 mCi technetium-99m Myoview IV was injected at rest. Two days protocol was performed. CARDIAC STRESS: The patient underwent IV Lexiscan perfusion study under the supervision of an attending staff using standard IV Lexiscan as per protocol. The patient remained hemodynamically stable. Baseline blood pressure 122/90. Baseline rhythm sinus with sinus bradycardia, heart rate up to 49. During stress, no convincing ischemic changes seen. There was poor R-wave progression at rest. Some nonspecific ST-T changes. During stress, no new convincing ischemic changes seen. No significant arrhythmias seen. Minimal dyspnea. Also had mild abdominal discomfort without any chest discomfort. RAW DATA: There is an increased subdiaphragmatic activity. Breast shadow was seen as well. GATED STUDY: LV ejection fraction 72% at stress and resting LV ejection fraction 67%. Resting end-diastolic volume 95 mL. TID ratio 1.05, which is within normal limit. Lung/heart ratio 0.42, which is within normal limit. MYOCARDIAL PERFUSION SCAN: Stress supine, resting supine, and stress prone images were compared to each other. There appears to be normal myocardial perfusion. CONCLUSION: This is a normal myocardial perfusion study. Preserved left ventricular function. Overall, low-risk myocardial perfusion scan. The patient had exercise perfusion study in August 2011. At that time also, she had normal myocardial perfusion. Baseline rhythm sinus with nonspecific ST-T changes including asymmetrical T-wave inversion in lateral leads. In the absence of ischemia, infarction and preserved left ventricular function, overall low-risk myocardial perfusion scan. Morenita[facility]risus - GENERAL MAGISTRATE/fn/DC doc#: [id number]/job#: [id number] dd: 11/06/2023 15:29:00 dt: 11/06/2023 19:27:00 DICTATING MD/COPIES TO: Ade Perez MD COPIES MNE: BENJY;
== END ==
LOC: NUCM 09:14
PROVIDERS: PCP Student in an Organized Health Care Education/Training Program; Referring Provider Family Medicine; Visit Provider Family Medicine
DX: R07.9 Chest pain, unspecified (principal); E11.9 Type 2 diabetes mellitus without complications
CPT/HCPCS: 78452; 93017; A9502; J2785

== ENCOUNTER → 2024-04-07 09:50 | Outpatient (CLI) | payer MEDICARE, SELFPAY ==
[2023-09-22 21:06] VITALS: BMI 23.6
[2024-04-07 12:16] LABS: Prostate Specific Antigen Scrn 1.15 ng/mL (0.1-4.0)
== END ==
PROVIDERS: PCP Student in an Organized Health Care Education/Training Program; Referring Provider Urology; Visit Provider Urology
DX: Z12.5 Encounter for screening for malignant neoplasm of prostate (principal); N32.0 Bladder-neck obstruction; N40.1 Benign prostatic hyperplasia with lower urinary tract symptoms; R39.11 Hesitancy of micturition; Z87.891 Personal history of nicotine dependence
CPT/HCPCS: 36415; 51798; 81002; 99214; G0103

== ENCOUNTER 2024-04-12 09:17 | Emergency (ER) | payer MEDICARE, SELFPAY ==
[2023-09-22 21:06] VITALS: BMI 23.6
[2024-04-12] VITALS (29 sets, daily range): BP systolic 100–181; BP diastolic 58–93; PULSE 51–69; RESP 19–31; O2SAT 95–100; BMI 23.6
--- NOTE | 2024-04-12 09:25 | DI.RAD.S_ITS ---
PROCEDURE: XR CHEST 1V INDICATIONS: chest pain TECHNIQUE: One view of the chest was acquired. COMPARISON: [facility], CR, XR CHEST 1V, 09/22/2023, 15:10. [facility], CR, XR CHEST 1V, 09/21/2023, 14:43. FINDINGS: Surgical changes and devices: None. Lungs and pleura: On this semiupright portable chest examination, no large pneumothorax or large pleural effusions are seen. No focal infiltrates are seen. Mediastinum: Mediastinal contours appear normal. Heart size is mildly enlarged. Bones and chest wall: No suspicious bony lesions. Age-appropriate bony degenerative changes are seen. Overlying soft tissues appear unremarkable. IMPRESSION: Mild cardiomegaly. Clear lungs. Dictated by: Nic Holder M.D. on 04/12/2024 at 9:16 Approved by: Nic Holder M.D. on 04/12/2024 at 9:16
--- NOTE | 2024-04-12 09:27 | EKG_ITS ---
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
[2024-04-12 09:52] LABS: Add Manual Diff / Slide Review NO; Basophils Absolute Auto 100 /uL (0-100); Basophils Percent Auto 0.8 % (0-2); Eosinophils Absolute Auto 200 /uL (0-450); Eosinophils Percent Auto 2.5 % (2-4); Hematocrit 41.7 % (41-53); Hemoglobin 14.1 g/dL (13.5-17.5); Lymphocytes Absolute Auto 2000 /uL (1100-4500); Lymphocytes Percent Auto 25.1 % (25-40); Mean Corpuscular HGB Conc 33.8 % (30-36); Mean Corpuscular Hemoglobin 32.7 PG (26-34); Mean Corpuscular Volume 96.7 fL (80-100); Monocytes Absolute Auto 800 /uL (0-900); Neutrophils Absolute Auto 4800 /uL (1500-7000); Neutrophils Percent Auto 61.6 % (50-75); Platelet Count 188 X10^3/uL (150-400); Red Blood Cell Count 4.31 X10^6/uL (4.5-5.9); Red Cell Distribution Width 12.9 % (11.6-14.8); White Blood Cell Count 7.8 X10^3/uL (4.5-11.0)
[2024-04-12 09:57] LABS: PTT Partial Thromboplastin Tim 31 SECONDS (25.1-36.5)
[2024-04-12 10:00] LABS: Alanine Aminotransferase 21 IU/L (<50); Albumin 4.5 g/dL (3.5-5.0); Albumin Globulin Ratio 1.7 (1.0-2.8); Alkaline Phosphatase 72 U/L (38-126); Aspartate Aminotransferase 36 IU/L (17-59); BUN Creatinine Ratio 39.1 (6-22); Bilirubin Total 0.9 mg/dL (0.2-1.3); Blood Urea Nitrogen 43 mg/dL (9-20); Calcium 9.9 mg/dL (8.4-10.2); Carbon Dioxide 24 mmol/L (22-32); Chloride 107 mmol/L (98-107); Creatine Kinase 150 U/L (55-170); Estimated Glomerular Filt Rate > 60 mL/min (>60); Globulin 2.7 g/dL (1.7-4.1); Glucose 143 mg/dL (80-110); HEMOLYSIS 21 (0-50); Lipase 91 U/L (23-300); Magnesium 2.1 mg/dL (1.6-2.3); Potassium 4.5 mmol/L (3.4-5.1); Sodium 141 mmol/L (137-145); Total Protein 7.2 g/dL (6.3-8.2)
[2024-04-12 10:11] LABS: NT-proBNP (BNP-Adult 18+) 2120 pg/mL (<450)
[2024-04-12] MEDS: ASPIRIN 81 MG CHEW TAB 324 MG PO (10:21)
--- NOTE | 2024-04-12 10:21 | PC.NURSE ---
Patient given 243mg aspirin due to the patient taking 81mg and took daily dose today.
--- NOTE | 2024-04-12 10:31 | ED.CHESTPAIN ---
HPI - Chest Pain General Chief Complaint: Chest Pain Stated Complaint: chest pain Time Seen by Provider: 04/12/24 10:19 Source: patient Mode of arrival: Ambulatory Limitations: no limitations Limitations: no limitations History of Present Illness HPI narrative: 88-year-old male history of hypertension, dyslipidemia, coronary artery disease with prior cardiac stents on aspirin daily. Patient states woke up this morning with left-sided chest pain that radiates to his shoulder and down his arm. States it is mild but persistent has not resolved no shortness of breath felt little bit warm and sweaty earlier but not currently. Denies any nausea or vomiting, states he has had some recent constipation but that has resolved. Denies any urinary symptoms. Denies any swelling in extremities. States he is chronically dizzy but not worse, no lightheadedness or passing out. States he normally have some discomfort in the morning when he wakes up from his arthritis across the top of his chest but states this is different. Patient takes an aspirin daily did take that this morning, has had history of 3 cardiac stents placed 4 years ago at [facility] after being transferred from [place] when he had prior myocardial infarction. Is on Repatha, losartan, ezetimibe, fish oil, levothyroxine, liothyronine, metformin, metoprolol for his home medications. States had prior cardiac stents 4 years ago had 3 placed. Has had prior hernia and appendectomy remotely. Allergies to Cipro, hydrocortisone, testosterone, tetracycline and statins. Former smoker, occasional alcohol, no recreational drugs. Dr. Macario is his forensic engineer. Dr. Prieto is his primary care physician. Related Data Home Medications Medication Instructions Recorded Confirmed aspirin 81 mg tablet,delayed 81 mg PO QDAY ##0 09/10/11 04/12/24 release ezetimibe 10 mg tablet 10 mg PO DAILY 04/22/23 04/12/24 liothyronine 5 mcg tablet 5 mcg PO DAILY 04/22/23 04/12/24 docosahexaenoic acid (dha)-epa 120 1 cap PO DAILY 09/22/23 04/12/24 mg-180 mg capsule (Fish Oil) metoprolol succinate 25 mg 12.5 mg PO DAILY 09/22/23 04/12/24 tablet,extended release 24 hr vit C-vit P-fxfydi-unslmfyz-omega 1 cap PO DAILY 09/22/23 04/12/24 3 100 mg-15 unit-2 mg-100 mg capsule evolocumab 140 mg/mL subcutaneous 140 mg SUBCUT Q2W 04/12/24 04/12/24 pen injector (Fito Ramos) fluorouracil 5 % topical cream 1 applic topical BID PRN 04/12/24 04/12/24 Precancerous lesions on face and scalp Previous Rx's Medication Instructions Recorded metformin 500 mg tablet 500 mg PO DAILY #90 tabs 07/17/23 nitroglycerin 0.4 mg sublingual 0.4 mg sublingual Q5M PRN chest 09/23/23 tablet pain #20 tabs losartan 25 mg tablet 25 mg PO DAILY #30 tabs 01/27/24 levothyroxine 75 mcg tablet 75 mcg PO DAILY #90 tabs 03/09/24 Allergies Allergy/AdvReac Type Severity Reaction Status Date / Time ciprofloxacin [From C[facility]RO [facility]] Allergy Intermediate Verified 04/07/24 09:13 hydrocortisone Allergy Intermediate Verified 04/07/24 09:13 [From CIPRO [facility]] testosterone [TESTOSTERONE] Allergy Intermediate Verified 04/07/24 09:13 tetracycline [TETRACYCLINE] Allergy Intermediate Verified 04/07/24 09:13 LIPID Allergy Unknown Uncoded 04/07/24 09:13 Review of Systems Review of Systems ROS Unobtainable: All systems reviewed & are unremarkable except as noted in HPI and below Patient History Medical History Neck pain (05/24/03) Hypothyroidism (09/07/04) Headache (12/02/02) Dizziness (05/20/02) Vaccin hem influenza B (05/06/02) Sprain, neck (05/06/02) Seborrheic keratosis, inflamed (05/24/03) Routine medical exam (07/21/02) Peripheral vascular disease, unspecified (05/24/03) Malaise and fatigue (05/20/02) Influenza vaccine administered (04/06/03) Hyperlipidemia, unspecified (09/07/04) Hematuria (09/28/03) Actinic keratosis (05/24/03) Abdominal pain (09/28/03) Bladder outlet obstruction History of tobacco use Lower urinary tract symptoms Inguinal hernia bilateral, non-recurrent Rosacea Rheumatoid arthritis Sleep apnea Headache Leg pain Osteopenia MGUS (monoclonal gammopathy of unknown significance) Hearing loss Cataracts, bilateral Benign prostate hyperplasia Low testosterone Hypothyroidism (~1957) Hypertension Skin cancer Type 2 diabetes mellitus Hx of subdural hematoma Monoclonal gammopathies Polymyalgia rheumatica Hx of acute myocardial infarction (~2019) Dizziness Benign paroxysmal vertigo Surgical History H/O vasectomy Anesthesia Subdural hematoma (~08/2022) History of coronary artery stent placement (~2019) S/P TURP (~2020) Family History Mother Stroke Brother History of heart disease Stroke Grandfather History of heart disease Grandmother Tuberculosis Social History household members: spouse Smoking Status: Former smoker alcohol intake: never Smoking Status: Former smoker Substance Use Type: does not use Exam Narrative Exam Narrative: GENERAL: Alert and oriented x three, mild, no diaphoresis HEENT: Head normocephalic, atraumatic, EOMI, pupils reactive, face symmetric, moist mucous membranes NECK: Supple, full range of motion CARDIOVASCULAR: Regular rate and rhythm without murmurs, rubs or gallops. No edema bilateral lower extremities RESPIRATORY: Breath sounds equal bilaterally, no wheezes rales or rhonchi. No tachypnea or accessory muscle use. ABDOMEN: Soft, nontender. Normoactive bowel sounds all 4 quadrants. No guarding or rebound, rigidity, no mass : No CVA tenderness EXTREMITIES: Normal range of motion, no clubbing or edema. Neurovascularly intact NEUROLOGICAL: Cranial nerves II through XII grossly intact. Moving all extremities SKIN: Warm, dry, no petechiae, no rashes or lesions. Initial Vital Signs Initial Vital Signs: Vital Signs Pulse Rate 58 L 04/12/24 09:22 Respiratory Rate 22 04/12/24 09:22 Blood Pressure 181/84 H 04/12/24 09:22 Pulse Oximetry 95 04/12/24 09:22 Course Orders Ordered: ED Orders 04/12/24 09:40 Complete Blood Count AUTO DIFF Stat Comprehensive Metabolic Panel Stat Lipase Stat Magnesium Stat NT-proBNP (BNP-Adult 18+) Stat PTT Partial Thromboplastin Mono Stat Prothrombin Time INR Stat Troponin & CK Cardiac Panel Stat 04/12/24 11:15 PTT Partial Thromboplastin Mono Q6H Trop I [Troponin I] Stat Discontinued Medications Aspirin (Aspirin 81 Mg Chew Tab) 324 mg PO NOW ONE Stop: 04/12/24 09:26 Last Admin: 04/12/24 10:21 Dose: 243 mg Documented By: RB Heparin Sodium (Porcine) (Heparin 5,000 Unit/Ml Vial) 4,000 unit 60 unit/kg (4000 unit) IV NOW ONE Stop: 04/12/24 10:36 Last Admin: 04/12/24 10:57 Dose: 4,000 unit Documented By: RB Heparin Sodium/Dextrose (Heparin Drip) 25,000 unit in 500 mls @ 16.874 mls/hr IV CONT LARRY; Protocol Last Titration: 04/12/24 15:30 Dose: 12.02 units/kg/hr, 16.9 mls/hr Documented By: NEELIMA Co-signed By: SB Admin: 04/12/24 10:59 Dose: 12.02 units/kg/hr, 16.9 mls/hr Documented By: RB Co-signed By: OLVIN Nitroglycerin (Nitroglycerin 0.4 Mg Sl Tab) 0.4 mg SL [id number] PRN PRN Reason: Chest Pain Last Admin: 04/12/24 12:14 Dose: 0.4 mg Documented By: NEELIMA Vital Signs Vital signs: Vital Signs - 8 hr 04/12/24 11:00 04/12/24 11:00 04/12/24 11:30 Pulse Rate 61 Respiratory Rate 25 H Blood Pressure 149/80 H 152/77 H Pulse Oximetry 99 04/12/24 11:30 04/12/24 11:45 04/12/24 11:45 Pulse Rate 63 62 Respiratory Rate 27 H 30 H Blood Pressure 142/82 H Pulse Oximetry 98 98 04/12/24 12:00 04/12/24 12:00 04/12/24 12:14 Pulse Rate 61 60 Respiratory Rate 27 H Blood Pressure 135/72 135/72 Pulse Oximetry 98 04/12/24 12:15 04/12/24 12:15 04/12/24 12:20 Pulse Rate 60 Respiratory Rate 26 H Blood Pressure 130/65 113/58 L Pulse Oximetry 99 04/12/24 12:20 04/12/24 12:25 04/12/24 12:25 Pulse Rate 63 61 Respiratory Rate 27 H 28 H Blood Pressure 114/66 Pulse Oximetry 96 96 04/12/24 12:30 04/12/24 12:30 04/12/24 12:35 Pulse Rate 61 59 L Respiratory Rate 21 19 Blood Pressure 118/68 Pulse Oximetry 97 97 04/12/24 12:35 04/12/24 12:40 04/12/24 12:40 Pulse Rate 58 L Respiratory Rate 23 Blood Pressure 111/63 124/68 Pulse Oximetry 96 04/12/24 12:45 04/12/24 12:45 04/12/24 12:50 Pulse Rate 60 59 L Respiratory Rate 28 H 26 H Blood Pressure 115/69 Pulse Oximetry 96 96 04/12/24 12:50 04/12/24 12:55 04/12/24 12:55 Pulse Rate 60 Respiratory Rate 27 H Blood Pressure 112/67 100/62 Pulse Oximetry 96 04/12/24 13:00 04/12/24 13:00 04/12/24 13:15 Pulse Rate 58 L 58 L Respiratory Rate 27 H 26 H Blood Pressure 118/70 Pulse Oximetry 98 98 04/12/24 13:15 04/12/24 13:30 04/12/24 13:30 Pulse Rate 57 L Respiratory Rate 19 Blood Pressure 121/73 130/76 Pulse Oximetry 98 04/12/24 13:46 04/12/24 13:46 04/12/24 14:00 Pulse Rate 61 Respiratory Rate 31 H Blood Pressure 164/88 H 146/78 H Pulse Oximetry 97 04/12/24 14:00 04/12/24 14:15 04/12/24 14:15 Pulse Rate 51 L 69 Respiratory Rate 23 28 H Blood Pressure 174/93 H Pulse Oximetry 99 97 04/12/24 14:30 04/12/24 14:30 04/12/24 14:45 Pulse Rate 61 Respiratory Rate 27 H Blood Pressure 167/86 H 164/84 H Pulse Oximetry 99 04/12/24 14:45 04/12/24 15:00 04/12/24 15:00 Pulse Rate 56 L 59 L Respiratory Rate 25 H 28 H Blood Pressure 162/90 H Pulse Oximetry 100 100 MDM - Chest Pain Lab Data 04/12/24 09:40 04/12/24 09:40 Labs: Lab Results 04/12/24 04/12/24 Range/Units 09:40 11:15 WBC 7.8 (4.5-11.0) X10^3/uL RBC 4.31 L (4.5-5.9) X10^6/uL Hgb 14.1 (13.5-17.5) g/dL Hct 41.7 (41-53) % MCV 96.7 (80-100) fL MCH 32.7 (26-34) PG MCHC 33.8 (30-36) % RDW 12.9 (11.6-14.8) % Plt Count 188 (150-400) X10^3/uL Neut % (Auto) 61.6 (50-75) % Lymph % (Auto) 25.1 (25-40) % Dyer % (Auto) 10.0 (3-14) % Eos % (Auto) 2.5 (2-4) % Baso % (Auto) 0.8 (0-2) % Neut # (Auto) 4800 (9082-9646) /uL Lymph # (Auto) 2000 (4344-8092) /uL Dyer # (Auto) 800 (0-900) /uL Eos # (Auto) 200 (0-450) /uL Baso # (Auto) 100 (0-100) /uL PT 12.0 (9.4-12.5) SECONDS INR 1.0 (0.9-1.3) APTT 31 153 H* D (25.1-36.5) SECONDS Sodium 141 (137-145) mmol/L Potassium 4.5 (3.4-5.1) mmol/L Chloride 107 (98-107) mmol/L Carbon Dioxide 24 (22-32) mmol/L BUN 43 H (9-20) mg/dL Creatinine 1.10 (0.66-1.25) mg/dL Estimated GFR > 60 (>60) mL/min BUN/Creatinine Ratio 39.1 H (6-22) Glucose 143 H (80-110) mg/dL Calcium 9.9 (8.4-10.2) mg/dL Magnesium 2.1 (1.6-2.3) mg/dL Total Bilirubin 0.9 (0.2-1.3) mg/dL AST 36 (17-59) IU/L ALT 21 (<50) IU/L Alkaline Phosphatase 72 (38-126) U/L Total Creatine Kinase 150 (55-170) U/L Troponin I 0.320 H* 0.296 H* (0.01-0.034) ng/mL NT-Pro-B Natriuret Pep 2120 H (<450) pg/mL Total Protein 7.2 (6.3-8.2) g/dL Albumin 4.5 (3.5-5.0) g/dL Globulin 2.7 (1.7-4.1) g/dL Albumin/Globulin Ratio 1.7 (1.0-2.8) Lipase 91 (23-300) U/L Imaging Data Chest x-ray: Radiologist's Impression: Close Chest X-Ray (Signed) Nic Holder - 04/12/24 Radiology Report (Cancelled) Ade Perez - 11/06/23 Myocardial Perfusion Scan Nuc Med (Signed) Ade Perez - 11/06/23 Echocardiogram Ultrasound (Signed) Katy Macario - 09/23/23 Telemetry Strips 09/22/23 Chest X-Ray (Signed) Micky Pelayo - 09/22/[address] (Signed) Valladares,Quan - 09/21/23 Chest X-Ray (Signed) Quan Valladares - 09/21/[address] (Signed) Nic Holder - 03/08/23 Launch?[place] [address] XRay Report Signed Patient: Sameer Xavier I MR#: [id number] : 1935 Acct:[id number] Age/Sex: 88 / M Date of Service: 04/12/24 Loc: ED Accession Number: [id number] Procedure: XR chest 1V Ordering Provider: Anjelica Jackson D.O. PROCEDURE: XR CHEST 1V INDICATIONS: chest pain TECHNIQUE: One view of the chest was acquired. COMPARISON: [facility], CR, XR CHEST 1V, 09/22/2023, 15:10. [facility], , XR CHEST 1V, 09/21/2023, 14:43. FINDINGS: Surgical changes and devices: None. Lungs and pleura: On this semiupright portable chest examination, no large pneumothorax or large pleural effusions are seen. No focal infiltrates are seen. Mediastinum: Mediastinal contours appear normal. Heart size is mildly enlarged. Bones and chest wall: No suspicious bony lesions. Age-appropriate bony degenerative changes are seen. Overlying soft tissues appear unremarkable. IMPRESSION: Mild cardiomegaly. Clear lungs. Dictated by: Nic Holder M.D. on 04/12/2024 at 9:16 Approved by: Nic Holder M.D. on 04/12/2024 at 9:16 ECG Data Attestation: I personally reviewed and interpreted this ECG as follows: Interpretation: Sinus bradycardia with sinus arrhythmia rate of 58 RI 188 QRS 84 QTC 398, no acute ST elevation T-waves are inverted in V4 5 6. MDM Narrative Medical decision making narrative: 88-year-old male history of prior myocardial infarction with cardiac stents placed on aspirin daily. Does follow with Cardiology through [facility] with Dr. Macario. Patient has had new left-sided chest pain radiating down his arm upon awakening today. Has been persistent has not improved but not totally resolved. Labs show white count of 7.8 hemoglobin of 14 platelets of 188, electrolytes are appropriate BUN 43 creatinine is 1.1 glucose is 143, LFTs are negative, total CK is 150 with a troponin is positive at 0.32, BNP is 2120 Chest x-ray shows mild cardiomegaly, no pleural effusions. No pulmonary edema noted. EKG does show T-wave inversion in V4 5 and 6 which appears new compared to EKG from 09/22/2023, no acute ST elevation appreciated. Received aspirin 324 mg here in the department. Nitro SL with improvement of chest pain. Heparin drip was started. Spoke with Cardiology, Dr. Garcia at [facility]. Agrees with plan aspirin, nitro heparin call with transfer. They will see if there are beds available at their facility. Discussed with patient plan for transfer. Plan for repeat troponin and EKG at the 2 hour debbie. Calls out to multiple facilities. Spoke with Dr. Martinez hospitalist at [facility] accepts for transfer. Patient's labs findings, respirations were 27 documented in the computer although discussed we will re-evaluate as patient was not tachypneic like that earlier. Reviewed all of labs, patient's findings and treatments thus far. They accept for transfer, awaiting bed assignment. Recheck patient is chest pain-free. Agreeable for transfer. All questions answered. Critical Care Time Critical Care Time Critical Care Time: Yes Total Critical Care Time: 35 Attestation: The high probability of a clinically significant, sudden or life threatening deterioration of the cardiac and pulmonary system(s) required my full and direct attention, intervention and personal management. The aggregate critical care time was [--] minutes. This time is in addition to time spent performing reported procedures but includes the following: [x] Data Review and interpretation [x] Patient assessment and monitoring of vital signs [x] Documentation [x] Medication orders and management Discharge Plan Departure Patient Disposition: [facility] Clinical Impression: Non-ST elevation MN (NSTEMI) Prescriptions: No Action metformin 500 mg tablet 500 mg PO DAILY Qty: 90 3RF ezetimibe 10 mg tablet 10 mg PO DAILY liothyronine 5 mcg tablet 5 mcg PO DAILY aspirin 81 MG tablet,delayed release (DR/EC) 81 mg PO QDAY Qty: 0 losartan 25 mg tablet 25 mg PO DAILY Qty: 30 3RF levothyroxine 75 mcg tablet 75 mcg PO DAILY Qty: 90 3RF metoprolol succinate 25 mg tablet extended release 24 hr 12.5 mg PO DAILY Fish Oil 120-180 mg Capsule 1 cap PO DAILY vit C-vit [id number] ef-apkb-ou-mg Capsule 1 cap PO DAILY nitroglycerin 0.4 mg tablet, sublingual 0.4 mg sublingual Q5M PRN (Reason: chest pain) Qty: 20 0RF Rx Instructions: do not exceed 3 doses per episode fluorouracil 5 % cream 1 applic topical BID PRN (Reason: Precancerous lesions on face and scalp) Repatha SureClick 140 mg/mL pen injector 140 mg SUBCUT Q2W Referrals: Devi Prieto MD [Primary Care Provider] -
[2024-04-12] MEDS: HEPARIN 5,000 UNIT/ML VIAL 4000 UNIT IV (10:57)
[2024-04-12] MEDS: HEPARIN DRIP 25,000 UNIT/500 ML IV.SOLN 16.9 UNIT IV (10:59)
[2024-04-12] MEDS: NITROGLYCERIN 0.4 MG SL TAB SL (12:14)
[2024-04-12 12:30] LABS: Troponin I 0.296 ng/mL (0.01-0.034)
[2024-04-12 12:44] LABS: PTT Partial Thromboplastin Tim 153 SECONDS (25.1-36.5)
--- NOTE | 2024-04-12 13:08 | PC.NURSE ---
PTT taken after heparin started. Existing PTT at 09:40 of 31 before the heparin given. Dr. Jackson informed. Waiting for 6 hour redraw from time of start.
--- NOTE | 2024-04-12 13:18 | PC.NURSE ---
Started transfer process for this pt dx with NSTEMI and will need a tele bed. This SUBSTANCE ABUSE CLINICIAN got the following responses: - Marisol @ 3223: Spoke with Alcira the [facility] supervior and stated that they have no beds at the time, but there are discharges throughout the day and will call when they have a spot. Their fax machine was down in the ER and for transfers, so this SUBSTANCE ABUSE CLINICIAN sent a secured email to the supervisor brine's email and sent facesheet electronically. - [facility] @ 8597: Spoke with Jasmyne at the [facility]. Sent facesheet, images and doc note. States that they will have them under the waitlist. - Prov/Ukrainian @ 1200: [facility]forgot to take down name) stated that they are 50% over capacity for tele beds and that they will only accept patient if we haev exhausted all of our options. - Miriam Humphries @ 1203: Spoke with Roxanne at [facility] and sent facesheet and images. After talking with Dr. Jackson, Roxanne states that they are accepted, however there is no bed assignment yet. Will follow up later for bed assignment.
--- NOTE | 2024-04-12 14:31 | PC.NURSE ---
Patient accepted and has bed asignment at [facility] Bed 876. Nurse report # [phone] [id number]
--- NOTE | 2024-04-12 15:15 | PC.NURSE ---
left with patient wallet, and 3 sets of keys and patients underwear. Patient leaves with [facility] having 2 bags inside contain 1 set of running shoes, ball cap, sweater, undershirt, jeans, outdoor vest. Patient is wearing bilateral hearing aides. Bags also contain a ziplock bag of ingot weigher chords including one for phone and hearing aides. Report given to [facility] unit RN.
--- NOTE | 2024-04-12 15:34 | PC.NURSE ---
This RN gave report to Gissell ERICKSON at [facility] at Report #: [id number]. This RN gave them this ED return phone number.
--- NOTE | 2024-04-12 15:43 | PC.NURSE ---
This RN sent patient with [facility] with the Heparin running at 16.9 ml/hr. This RN informed both [facility] RN and Gissell RN at [facility] of next PTT due at 16:59.
== END 2024-04-12 15:37 | disposition short-term general hospital (02) ==
PROVIDERS: Emergency Provider Emergency Medicine; PCP Student in an Organized Health Care Education/Training Program
DX: I21.4 Non-ST elevation (NSTEMI) myocardial infarction (principal); R00.1 Bradycardia, unspecified; I49.8 Other specified cardiac arrhythmias; I25.2 Old myocardial infarction; Z95.5 Presence of coronary angioplasty implant and graft
CPT/HCPCS: 36415; 71045; 80053; 82550; 83690; 83735; 83880; 84484; 85025; 85610; 85730; 93005; 96365; 96366; 96375; 99284; 99291; J1644

== ENCOUNTER → 2024-04-28 08:01 | Outpatient (CLI) | payer MEDICARE, SELFPAY ==
[2024-04-19 11:57] VITALS: BMI 23.6
== END ==
PROVIDERS: PCP Student in an Organized Health Care Education/Training Program; Referring Provider Student in an Organized Health Care Education/Training Program; Visit Provider Student in an Organized Health Care Education/Training Program
DX: Z86.73 Personal history of transient ischemic attack (TIA), and cerebral infarction without residual deficits (principal)
CPT/HCPCS: 93246; 93248

== ENCOUNTER 2024-06-21 19:27 | Emergency (ER) | payer MEDICARE, SELFPAY ==
[2024-04-19 11:57] VITALS: BMI 23.6
[2024-06-21] VITALS (12 sets, daily range): BP systolic 123–187; BP diastolic 69–83; PULSE 48–63; RESP 14–19; TEMP 36.3; O2SAT 93–100; BMI 23.1
--- NOTE | 2024-06-21 19:34 | EKG_ITS ---
[address] [address] Test Date: 2024-06-21 Pat Name: Sameer Xavier Department: Room: Gender: Male Gluten Settling Tender: HALLIE MCDONOUGH : 1935 Requested By: Order Number: [id number] Reading MD: Edinson Estrada MD Measurements Intervals [place] Rate: 56 P: 57 GA: 162 QRS: -11 QRSD: 82 T: 91 QT: 360 QTc: 347 Interpretive Statements Sinus bradycardia Nonspecific T wave abnormality Electronically Signed On 06-22-2024 7:48:10 PST by Edinson Estrada MD
--- NOTE | 2024-06-21 19:37 | DI.RAD.S_ITS ---
PROCEDURE: XR CHEST 1V INDICATIONS: chest pain TECHNIQUE: One view of the chest was acquired. COMPARISON: [facility], CR, XR CHEST 1V, 04/12/2024, 9:22. FINDINGS: Surgical changes and devices: None. Lungs and pleura: Lungs are clear. No pleural effusions or pneumothorax. Mediastinum: Mediastinal contours appear normal. Heart size is enlarged. Bones and chest wall: No suspicious bony lesions. Overlying soft tissues appear unremarkable. IMPRESSION: No acute cardiopulmonary pathology. Dictated by: Tobin Tovar M.D. on 06/21/2024 at 20:13 Approved by: Tobin Tovar M.D. on 06/21/2024 at 20:13
[2024-06-21 20:06] LABS: Add Manual Diff / Slide Review NO; Basophils Absolute Auto 100 /uL (0-100); Basophils Percent Auto 0.9 % (0-2); Eosinophils Absolute Auto 200 /uL (0-450); Hematocrit 42.2 % (41-53); Hemoglobin 14.3 g/dL (13.5-17.5); Lymphocytes Absolute Auto 2400 /uL (1100-4500); Lymphocytes Percent Auto 29.7 % (25-40); Mean Corpuscular HGB Conc 33.9 % (30-36); Mean Corpuscular Hemoglobin 32.3 PG (26-34); Mean Corpuscular Volume 95.1 fL (80-100); Monocytes Absolute Auto 700 /uL (0-900); Monocytes Percent Auto 8.8 % (3-14); Neutrophils Absolute Auto 4600 /uL (1500-7000); Neutrophils Percent Auto 57.6 % (50-75); Platelet Count 198 X10^3/uL (150-400); Red Blood Cell Count 4.44 X10^6/uL (4.5-5.9); Red Cell Distribution Width 13.2 % (11.6-14.8); White Blood Cell Count 8.1 X10^3/uL (4.5-11.0)
[2024-06-21 20:09] LABS: Prothrombin Time 11.1 SECONDS (9.4-12.5)
[2024-06-21 20:11] LABS: PTT Partial Thromboplastin Tim 26 SECONDS (25.1-36.5)
[2024-06-21 20:18] LABS: Alanine Aminotransferase 21 IU/L (<50); Albumin 4.4 g/dL (3.5-5.0); Albumin Globulin Ratio 1.5 (1.0-2.8); Alkaline Phosphatase 71 U/L (38-126); Aspartate Aminotransferase 30 IU/L (17-59); BUN Creatinine Ratio 30.8 (6-22); Bilirubin Total 0.5 mg/dL (0.2-1.3); Blood Urea Nitrogen 32 mg/dL (9-20); Carbon Dioxide 26 mmol/L (22-32); Chloride 105 mmol/L (98-107); Creatine Kinase 51 U/L (55-170); Estimated Glomerular Filt Rate > 60 mL/min (>60); Globulin 2.9 g/dL (1.7-4.1); Glucose 133 mg/dL (80-110); HEMOLYSIS < 15 (0-50); Lipase 119 U/L (23-300); Magnesium 2.1 mg/dL (1.6-2.3); Potassium 4.6 mmol/L (3.4-5.1); Sodium 137 mmol/L (137-145); Total Protein 7.3 g/dL (6.3-8.2)
[2024-06-21 20:30] LABS: NT-proBNP (BNP-Adult 18+) 150 pg/mL (<450); Troponin I 0.032 ng/mL (0.01-0.034)
--- NOTE | 2024-06-21 21:45 | PC.NURSE ---
Pt ambulatory to restroom without difficulty or assistance
--- NOTE | 2024-06-21 23:38 | PC.NURSE ---
Repeat troponin drawn from existing IV line without complications.
[2024-06-22] VITALS: BP 130/71; PULSE 49; RESP 17; O2SAT 97
[2024-06-22 00:06] LABS: Troponin I 0.029 ng/mL (0.01-0.034)
[2024-06-22 00:30] VITALS: BP 152/74; PULSE 54; RESP 18; O2SAT 96
--- NOTE | 2024-06-22 00:53 | PC.NURSE ---
Pt resting quietly with eyes closed, resps even and not labored. No distress noted at this time. Pt rouses easily to verbal stimuli. Pt remains connected to cardiac, resp, blood pressure, and pulse ox monitors with alarms on and audible. Call light within reach. remains in ED stretcher with patient.
[2024-06-22 01:00] VITALS: PULSE 53; RESP 18; O2SAT 97
[2024-06-22 01:01] VITALS: BP 151/80; PULSE 51; RESP 23; O2SAT 98
--- NOTE | 2024-06-22 01:03 | ED_ITS ---
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 Symptoms seemed to irene without particular specific treatment. Now while he has been waiting for evaluation he has diffuse arthritis pain typical of his rheumatoid arthritis, having not taken his medications for a bit. 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 Capellan in follow up later this month. He does not feel like there is any palpitations or fast heart rate sensation recent. Related Data Home Medications Medication Instructions Recorded Confirmed aspirin 81 mg tablet,delayed 81 mg PO QDAY ##0 09/10/11 05/27/24 release ezetimibe 10 mg tablet 10 mg PO DAILY 04/22/23 05/27/24 liothyronine 5 mcg tablet 5 mcg PO DAILY 04/22/23 05/27/24 docosahexaenoic acid (dha)-epa 120 1 cap PO DAILY 09/22/23 05/27/24 mg-180 mg capsule (Fish Oil) metoprolol succinate 25 mg 12.5 mg PO DAILY 09/22/23 05/27/24 tablet,extended release 24 hr vit C-vit C-kwbqnp-tlxyxwqw-omega 1 cap PO DAILY 09/22/23 05/27/24 3 100 mg-15 unit-2 mg-100 mg capsule evolocumab 140 mg/mL subcutaneous 140 mg SUBCUT Q2W 04/12/24 05/27/24 pen injector (Fito Ramos) fluorouracil 5 % topical cream 1 applic topical BID PRN 04/12/24 05/27/24 Precancerous lesions on face and scalp Previous Rx's Medication Instructions Recorded metformin 500 mg tablet 500 mg PO DAILY #90 tabs 07/17/23 nitroglycerin 0.4 mg sublingual 0.4 mg sublingual Q5M PRN chest 09/23/23 tablet pain #20 tabs levothyroxine 75 mcg tablet 75 mcg PO DAILY #90 tabs 03/09/24 losartan 25 mg tablet 25 mg PO DAILY #30 tabs 05/19/24 Allergies Allergy/AdvReac Type Severity Reaction Status Date / Time ciprofloxacin [From [facility]RO [facility]] Allergy Intermediate Verified 05/27/24 10:36 hydrocortisone Allergy Intermediate Verified 05/27/24 10:36 [From [facility]] testosterone [TESTOSTERONE] Allergy Intermediate Verified 05/27/24 10:36 tetracycline [TETRACYCLINE] Allergy Intermediate Verified 05/27/24 10:36 LIPID Allergy Unknown Uncoded 05/27/24 10:36 Patient History Medical History Neck pain (05/24/03) Hypothyroidism (09/07/04) Headache (12/02/02) Dizziness (05/20/02) Vaccin hem influenza B (05/06/02) Sprain, neck (05/06/02) Seborrheic keratosis, inflamed (05/24/03) Routine medical exam (07/21/02) Peripheral vascular disease, unspecified (05/24/03) Malaise and fatigue (05/20/02) Influenza vaccine administered (04/06/03) Hyperlipidemia, unspecified (09/07/04) Hematuria (09/28/03) Actinic keratosis (05/24/03) Abdominal pain (09/28/03) Bladder outlet obstruction History of tobacco use Lower urinary tract symptoms Inguinal hernia bilateral, non-recurrent Rosacea Rheumatoid arthritis Sleep apnea Headache Leg pain Osteopenia MGUS (monoclonal gammopathy of unknown significance) Hearing loss Cataracts, bilateral Benign prostate hyperplasia Low testosterone Hypothyroidism (~1957) Hypertension Skin cancer Type 2 diabetes mellitus Hx of subdural hematoma Monoclonal gammopathies Polymyalgia rheumatica Hx of acute myocardial infarction (~2019) Dizziness Benign paroxysmal vertigo Surgical History H/O vasectomy Anesthesia Subdural hematoma (~08/2022) History of coronary artery stent placement (~2019) S/P TURP (~2020) Family History Mother Stroke Brother History of heart disease Stroke Grandfather History of heart disease Grandmother Tuberculosis Social History household members: spouse Smoking Status: Former smoker alcohol intake: never Smoking Status: Former smoker Exam Narrative Exam Narrative: GENERAL: Well-developed patient, in mild distress. HEAD: Atraumatic. Normocephalic. EYES: Pupils equal round and reactive. Extraocular motions intact. No scleral icterus. No injection or drainage. ENT: Nose without bleeding, purulent drainage. Throat without erythema, tonsillar hypertrophy or exudate. Airway patent. NECK: Trachea midline. Non tender CARDIOVASCULAR: Regular rate and rhythm without murmurs, gallops, or rubs. RESPIRATORY: Clear to auscultation. Breath sounds equal bilaterally. No wheezes, rales, or rhonchi. GASTROINTESTINAL: Abdomen soft, non-tender, nondistended. EXTREMITIES: No edema or joint tenderness. BACK: Nontender without deformity or crepitance. No flank tenderness. NEURO: AOx3. Motor functions grossly nonfocal. SKIN: No rash or erythema of visible areas Initial Vital Signs Initial Vital Signs: Vital Signs Temperature 97.4 F L 06/21/24 19:30 Pulse Rate 62 06/21/24 19:30 Respiratory Rate 18 06/21/24 19:30 Blood Pressure 187/79 H 06/21/24 19:30 Pulse Oximetry 99 06/21/24 19:30 Oxygen Delivery Method Room Air 06/21/24 19:30 Course Orders Ordered: ED Orders 06/21/24 19:37 XR chest 1V Stat EKG-12 Lead Stat 06/21/24 19:55 Complete Blood Count AUTO DIFF Stat Comprehensive Metabolic Panel Stat Lipase Stat Magnesium Stat NT-proBNP (BNP-Adult 18+) Stat PTT Partial Thromboplastin Mono Stat Prothrombin Time INR Stat Troponin & CK Cardiac Panel Stat 06/21/24 23:35 Troponin I Stat Discontinued Medications Aspirin (Aspirin 81 Mg Chew Tab) 324 mg PO NOW ONE Stop: 06/21/24 19:38 Last Admin: 06/21/24 21:20 Dose: Not Given Documented By: LS Vital Signs Vital signs: Vital Signs - 8 hr 06/21/24 21:00 06/21/24 21:00 06/21/24 21:30 Pulse Rate 53 L Respiratory Rate 14 Blood Pressure 139/77 138/71 Pulse Oximetry 99 Oxygen Delivery Method Room Air Oxygen Flow Rate 4 06/21/24 21:30 06/21/24 22:02 06/21/24 22:30 Pulse Rate 52 L 56 L 52 L Respiratory Rate 14 18 Blood Pressure Pulse Oximetry 100 94 98 Oxygen Delivery Method Room Air Room Air Oxygen Flow Rate 06/21/24 22:30 06/21/24 23:00 06/21/24 23:00 Pulse Rate 48 L Respiratory Rate 19 Blood Pressure 148/78 H 123/69 Pulse Oximetry 97 Oxygen Delivery Method Room Air Oxygen Flow Rate 06/21/24 23:30 06/21/24 23:30 06/22/24 00:00 Pulse Rate 49 L 49 L Respiratory Rate 15 17 Blood Pressure 142/72 H Pulse Oximetry 96 97 Oxygen Delivery Method Room Air Room Air Oxygen Flow Rate 06/22/24 00:00 06/22/24 00:30 06/22/24 00:30 Pulse Rate 54 L Respiratory Rate 18 Blood Pressure 130/71 152/74 H Pulse Oximetry 96 Oxygen Delivery Method Room Air Oxygen Flow Rate 06/22/24 01:00 06/22/24 01:01 06/22/24 01:01 Pulse Rate 53 L 51 L Respiratory Rate 18 23 Blood Pressure 151/80 H Pulse Oximetry 97 98 Oxygen Delivery Method Room Air Room Air Oxygen Flow Rate 06/22/24 01:30 Pulse Rate 59 L Respiratory Rate 28 H Blood Pressure Pulse Oximetry Oxygen Delivery Method Oxygen Flow Rate MDM - Chest Pain Lab Data Attestation: I reviewed the patient's lab results. Lab results narrative: White blood cell count 8100, hemoglobin 14.3, platelets adequate. Basic metabolic panel unremarkable. Liver functions lipase normal. Troponin low normal, to interval sequential readings, not rising. BNP 150 normal. 06/21/24 19:55 06/21/24 19:55 Labs: Lab Results 06/21/24 06/21/24 Range/Units 19:55 23:35 WBC 8.1 (4.5-11.0) X10^3/uL RBC 4.44 L (4.5-5.9) X10^6/uL Hgb 14.3 (13.5-17.5) g/dL Hct 42.2 (41-53) % MCV 95.1 (80-100) fL MCH 32.3 (26-34) PG MCHC 33.9 (30-36) % RDW 13.2 (11.6-14.8) % Plt Count 198 (150-400) X10^3/uL Neut % (Auto) 57.6 (50-75) % Lymph % (Auto) 29.7 (25-40) % [place] % (Auto) 8.8 (3-14) % Eos % (Auto) 3.0 (2-4) % Baso % (Auto) 0.9 (0-2) % Neut # (Auto) 4600 (7582-1776) /uL Lymph # (Auto) 2400 (5067-5489) /uL [place] # (Auto) 700 (0-900) /uL Eos # (Auto) 200 (0-450) /uL Baso # (Auto) 100 (0-100) /uL PT 11.1 (9.4-12.5) SECONDS INR 1.0 (0.9-1.3) APTT 26 (25.1-36.5) SECONDS Sodium 137 (137-145) mmol/L Potassium 4.6 (3.4-5.1) mmol/L Chloride 105 (98-107) mmol/L Carbon Dioxide 26 (22-32) mmol/L BUN 32 H (9-20) mg/dL Creatinine 1.04 (0.66-1.25) mg/dL Estimated GFR > 60 (>60) mL/min BUN/Creatinine Ratio 30.8 H (6-22) Glucose 133 H (80-110) mg/dL Calcium 10.0 (8.4-10.2) mg/dL Magnesium 2.1 (1.6-2.3) mg/dL Total Bilirubin 0.5 (0.2-1.3) mg/dL AST 30 (17-59) IU/L ALT 21 (<50) IU/L Alkaline Phosphatase 71 (38-126) U/L Total Creatine Kinase 51 L (55-170) U/L Troponin I 0.032 0.029 (0.01-0.034) ng/mL NT-Pro-B Natriuret Pep 150 (<450) pg/mL Total Protein 7.3 (6.3-8.2) g/dL Albumin 4.4 (3.5-5.0) g/dL Globulin 2.9 (1.7-4.1) g/dL Albumin/Globulin Ratio 1.5 (1.0-2.8) Lipase 119 (23-300) U/L ECG Data Attestation: I personally reviewed and interpreted this ECG as follows: Interpretation: Sinus bradycardia with rate of 56, no obvious ST segment elevation or depression changes. NV 162. QRS 82. QTC 347. MDM Narrative Medical decision making narrative: 89-year-old male with complex medical history including chronic dizziness for which he has been evaluated at 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 Chest discomfort earlier today, now more with diffuse arthritis symptoms having not taken his arthritis medications. Afebrile, sirs screen negative. No chest wall discomfort on palpation. Screening EKG without obvious ischemic changes. Initial troponin negative. We will await repeat further interval troponin. Interval troponin also measurable but low, negative. He does take Isordil and we did discuss possibly increasing his dose, however he has chronic dizziness in his afraid he might get more dizzy on higher dose, which is a valid consideration. He would like to keep the same medication regimen for now. In who would like to call his manager wastewater during regular hours later today. Discharged home with . Encouraged to take his chronic medications for rheumatoid arthritis, and is other chronic medications. Patient to contact his manager wastewater Dr. Macario in a few more hours during regular hours. Return precautions discussed. Discharge Plan Departure Patient Disposition: Home Clinical Impression: Chest pain, Hx of rheumatoid arthritis Instructions: DI for Chest Pain Activity Restrictions/Additional Instructions: Chest pain, history of coronary artery disease, EKG tonight without obvious ischemic changes, serial blood tests not suggestive of heart attack at this time. You have had previous coronary interventions in 1999 with three-vessel stents, more recently March 2024 with reported heart attack but no coronary vessel interventions, at that time complicated by stroke with sequelae of new left peripheral vision deficit. History of suspected polymyalgia rheumatica but more recently with catalytic converter operator who believes you have rheumatoid arthritis. Arthritic pain to neck and diffuse, some chest discomfort that could be arthritic versus some other cause. We did discuss increased dose of Isordil/isosorbide, however you also have chronic dizziness, in the nitrate dose increase could in theory cause more dizziness. History of recent heart monitor for tachycardia, awaiting results with your manager wastewater. No tachycardia palpitation heart rate sensation during the event today/tonight. Keep dose of your chronic medications the same for now. Call your manager wastewater during regular hours in a few more hours Friday, to discussed medication changes in follow up recommendations. Return earlier to this/nearest emergency department for any change worsening symptoms or any concerns prior You felt better, wanted to go home, felt reassured by test results thus far, did not want to have any medication changes at this time, no further evaluation here for now, preferred to discuss case and situation with your manager wastewater, call office later today during open hours. Continue chronic medications the same for now. Prescriptions: No Action metformin 500 mg tablet 500 mg PO DAILY Qty: 90 3RF ezetimibe 10 mg tablet 10 mg PO DAILY liothyronine 5 mcg tablet 5 mcg PO DAILY aspirin 81 MG tablet,delayed release (DR/EC) 81 mg PO QDAY Qty: 0 levothyroxine 75 mcg tablet 75 mcg PO DAILY Qty: 90 3RF losartan 25 mg tablet 25 mg PO DAILY Qty: 30 3RF metoprolol succinate 25 mg tablet extended release 24 hr 12.5 mg PO DAILY Fish Oil 120-180 mg Capsule 1 cap PO DAILY vit C-vit [id number] lk-lnhc-nd-mg Capsule 1 cap PO DAILY nitroglycerin 0.4 mg tablet, sublingual 0.4 mg sublingual Q5M PRN (Reason: chest pain) Qty: 20 0RF Rx Instructions: do not exceed 3 doses per episode fluorouracil 5 % cream 1 applic topical BID PRN (Reason: Precancerous lesions on face and scalp) Repatha SureClick 140 mg/mL pen injector 140 mg SUBCUT Q2W Referrals: Katy Macario MD [Physician] - Devi Prieto MD [Primary Care Provider] - Stand Alone Forms: Patient Portal/API/Survey
[2024-06-22 01:30] VITALS: PULSE 59; RESP 28
--- NOTE | 2024-06-22 01:43 | PC.NURSE ---
Pt ambulatory to restroom without difficulty or assistance. Requesting to not be placed back on cardiac, reap, blood pressure, and pulse ox monitors at this time.
--- NOTE | 2024-06-22 01:55 | PC.NURSE ---
Dr. Hammer at bedside at this time.
== END 2024-06-22 02:22 | disposition home or self-care (01) ==
PROVIDERS: Emergency Provider Emergency Medicine; PCP Student in an Organized Health Care Education/Training Program
DX: R07.9 Chest pain, unspecified (principal); I25.10 Atherosclerotic heart disease of native coronary artery without angina pectoris; I10 Essential (primary) hypertension; Z95.5 Presence of coronary angioplasty implant and graft; I25.2 Old myocardial infarction; Z87.39 Personal history of other diseases of the musculoskeletal system and connective tissue; Z87.891 Personal history of nicotine dependence
CPT/HCPCS: 36415; 71045; 80053; 82550; 83690; 83735; 83880; 84484; 85025; 85610; 85730; 93005; 93010; 99283; 99284

== ENCOUNTER → 2024-07-27 09:28 | Outpatient (CLI) | payer MEDICARE, SELFPAY ==
[2024-04-19 11:57] VITALS: BMI 23.6
[2024-07-27 10:23] LABS: Hematocrit 40.2 % (41-53); Hemoglobin 13.4 g/dL (13.5-17.5); Mean Corpuscular HGB Conc 33.3 % (30-36); Mean Corpuscular Hemoglobin 32.2 PG (26-34); Mean Corpuscular Volume 96.6 fL (80-100); Platelet Count 191 X10^3/uL (150-400); Red Blood Cell Count 4.16 X10^6/uL (4.5-5.9)
[2024-07-27 10:47] LABS: BUN Creatinine Ratio 31.5 (6-22); Blood Urea Nitrogen 29 mg/dL (9-20); Calcium 9.2 mg/dL (8.4-10.2); Carbon Dioxide 24 mmol/L (22-32); Chloride 107 mmol/L (98-107); Cholesterol 178 mg/dL (140-199); Estimated Glomerular Filt Rate > 60 mL/min (>60); Glucose 198 mg/dL (80-110); HDL Cholesterol 50 mg/dL (40-60); HEMOLYSIS < 15 (0-50); LDL Cholesterol Calculated 90 mg/dL (<100); Potassium 4.7 mmol/L (3.4-5.1); Sodium 138 mmol/L (137-145); Triglycerides 189 mg/dL (35-150)
== END ==
PROVIDERS: PCP Student in an Organized Health Care Education/Training Program; Referring Provider Internal Medicine Cardiovascular Disease; Visit Provider Internal Medicine Cardiovascular Disease
DX: I25.10 Atherosclerotic heart disease of native coronary artery without angina pectoris (principal)
CPT/HCPCS: 36415; 80048; 80061; 85027

== ENCOUNTER 2024-12-13 17:14 | Emergency (ER) | payer MEDICARE, SELFPAY ==
[2024-04-19 11:57] VITALS: BMI 23.6
[2024-12-13] VITALS (16 sets, daily range): BP systolic 133–182; BP diastolic 72–81; PULSE 59–90; RESP 16–24; TEMP 36.6; O2SAT 97–100; BMI 23.6
--- NOTE | 2024-12-13 17:29 | DI.RAD.S_ITS ---
PROCEDURE: XR CHEST 1V INDICATIONS: Chest Pain TECHNIQUE: One view of the chest was acquired. COMPARISON: [facility], CR, XR CHEST 1V, 06/21/2024, 19:35. FINDINGS: Surgical changes and devices: None. Lungs and pleura: Lungs are clear. No pleural effusions or pneumothorax. Mediastinum: Mediastinal contours appear normal. Heart size is normal. Bones and chest wall: No suspicious bony lesions. Overlying soft tissues appear unremarkable. IMPRESSION: No acute cardiopulmonary pathology. Dictated by: Tobin Tovar M.D. on 12/13/2024 at 17:59 Approved by: Tobin Tovar M.D. on 12/13/2024 at 17:59
--- NOTE | 2024-12-13 17:29 | EKG_ITS ---
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
[2024-12-13] MEDS: ASPIRIN 81 MG CHEW TAB 324 MG PO (17:38)
[2024-12-13 17:49] LABS: Add Manual Diff / Slide Review NO; Basophils Absolute Auto 100 /uL (0-100); Eosinophils Absolute Auto 100 /uL (0-450); Hematocrit 40.5 % (41-53); Hemoglobin 13.5 g/dL (13.5-17.5); Lymphocytes Absolute Auto 1800 /uL (1100-4500); Lymphocytes Percent Auto 27.8 % (25-40); Mean Corpuscular HGB Conc 33.3 % (30-36); Mean Corpuscular Hemoglobin 31.6 PG (26-34); Mean Corpuscular Volume 94.7 fL (80-100); Monocytes Absolute Auto 600 /uL (0-900); Monocytes Percent Auto 9.2 % (3-14); Neutrophils Absolute Auto 3900 /uL (1500-7000); Platelet Count 179 X10^3/uL (150-400); Red Blood Cell Count 4.28 X10^6/uL (4.5-5.9); Red Cell Distribution Width 12.8 % (11.6-14.8); White Blood Cell Count 6.5 X10^3/uL (4.5-11.0)
[2024-12-13 17:55] LABS: Prothrombin Time 11.2 SECONDS (9.4-12.5)
[2024-12-13 17:58] LABS: PTT Partial Thromboplastin Tim 29 SECONDS (25.1-36.5)
[2024-12-13 17:59] LABS: Alanine Aminotransferase 20 IU/L (<50); Albumin 4.3 g/dL (3.5-5.0); Albumin Globulin Ratio 1.6 (1.0-2.8); Alkaline Phosphatase 67 U/L (38-126); Aspartate Aminotransferase 30 IU/L (17-59); BUN Creatinine Ratio 32.9 (6-22); Bilirubin Total 0.4 mg/dL (0.2-1.3); Blood Urea Nitrogen 27 mg/dL (9-20); Calcium 9.4 mg/dL (8.4-10.2); Carbon Dioxide 25 mmol/L (22-32); Chloride 107 mmol/L (98-107); Creatine Kinase 64 U/L (55-170); Estimated Glomerular Filt Rate > 60 mL/min (>60); Globulin 2.7 g/dL (1.7-4.1); Glucose 123 mg/dL (70-99); HEMOLYSIS < 15 (0-50); Lipase 78 U/L (23-300); Potassium 4.3 mmol/L (3.4-5.1); Sodium 138 mmol/L (137-145)
--- NOTE | 2024-12-13 18:06 | ED.CHESTPAIN ---
HPI - Chest Pain General Chief Complaint: Chest Pain Stated Complaint: Tightness across shoulders/weak Time Seen by Provider: 12/13/24 18:03 Source: patient Mode of arrival: Ambulatory History of Present Illness HPI narrative: 89-year-old male history of CAD x3 stents, subdural hemorrhage, presents with multiple complaints today leg pain chest pain leg swelling and headache. This all started yesterday while he was walking noticed some leg pain but he attributed to his arthritis and noticed also some increased swelling. He went to the grocery store today and shortly after coming back he develop chest pain across his chest from right to left described as tightness but denies nausea diaphoresis or any other radiating symptoms. Patient also reports headache in the back of the head for which he said that is when he had a head bleed in the remote past and he is on aspirin and Plavix. Patient denies shortness breath dyspnea on exertion his pain is now 3/10 from 410 when he 1st came in after being given 3 baby aspirins. Other than what is stated 14 point review of system is negative. Related Data Home Medications ?Medication ?Instructions ?Recorded ?Confirmed aspirin 81 mg tablet,delayed 81 mg PO QDAY ##0 09/10/11 10/06/24 release ezetimibe 10 mg tablet 10 mg PO DAILY 04/22/23 10/06/24 liothyronine 5 mcg tablet 5 mcg PO DAILY 04/22/23 10/06/24 docosahexaenoic acid (dha)-epa 120 1 cap PO DAILY 09/22/23 10/06/24 mg-180 mg capsule (Fish Oil) metoprolol succinate 25 mg 12.5 mg PO DAILY 09/22/23 10/06/24 tablet,extended release 24 hr vit C-vit O-ellrjt-higlwvey-omega 1 cap PO DAILY 09/22/23 10/06/24 3 100 mg-15 unit-2 mg-100 mg capsule evolocumab 140 mg/mL subcutaneous 140 mg SUBCUT Q2W 04/12/24 10/06/24 pen injector (Fito Ramos) fluorouracil 5 % topical cream 1 applic topical BID PRN 04/12/24 10/06/24 Precancerous lesions on face and scalp Previous Rx's ?Medication ?Instructions ?Recorded nitroglycerin 0.4 mg sublingual 0.4 mg sublingual Q5M PRN chest 09/23/23 tablet pain #20 tabs levothyroxine 75 mcg tablet 75 mcg PO DAILY #90 tabs 03/09/24 metformin 500 mg tablet 500 mg PO DAILY #90 tabs 07/19/24 losartan 25 mg tablet 25 mg PO DAILY #90 tabs 08/24/24 furosemide 20 mg tablet (Lasix) 20 mg PO DAILY #2 tabs 12/13/24 Allergies Allergy/AdvReac Type Severity Reaction Status Date / Time tetracycline (TETRACYCLINE) Allergy Intermediate UNKNOWN Verified 12/13/24 17:23 ciprofloxacin (From [facility] HC) AdvReac Intermediate muscle Verified 12/13/24 17:23 aches hydrocortisone (From [facility] AdvReac Intermediate muscle Verified 12/13/24 17:23 HC) aches testosterone (TESTOSTERONE) AdvReac Intermediate muscle Verified 12/13/24 17:23 aches LIPID Allergy Unknown Uncoded 12/13/24 17:23 Review of Systems Review of Systems ROS Unobtainable: All systems reviewed & are unremarkable except as noted in HPI and below Patient History Medical History (Updated 12/13/24 @ 22:21 by Edinson Wiggins, ) Incomplete emptying of bladder Neck pain (05/24/03) Hypothyroidism (09/07/04) Headache (12/02/02) Dizziness (05/20/02) Vaccin hem influenza B (05/06/02) Sprain, neck (05/06/02) Seborrheic keratosis, inflamed (05/24/03) Routine medical exam (07/21/02) Peripheral vascular disease, unspecified (05/24/03) Malaise and fatigue (05/20/02) Influenza vaccine administered (04/06/03) Hyperlipidemia, unspecified (09/07/04) Hematuria (09/28/03) Actinic keratosis (05/24/03) Abdominal pain (09/28/03) Bladder outlet obstruction History of tobacco use Lower urinary tract symptoms Inguinal hernia bilateral, non-recurrent Rosacea Rheumatoid arthritis Sleep apnea Headache Leg pain Osteopenia MGUS (monoclonal gammopathy of unknown significance) Hearing loss Cataracts, bilateral Benign prostate hyperplasia Low testosterone Hypothyroidism (~1958) Hypertension Skin cancer Type 2 diabetes mellitus Hx of subdural hematoma Monoclonal gammopathies Polymyalgia rheumatica Hx of acute myocardial infarction (~2019) Dizziness Benign paroxysmal vertigo Surgical History H/O vasectomy Anesthesia Subdural hematoma (~08/2022) History of coronary artery stent placement (~2019) S/P TURP (~2020) Family History Mother Stroke Brother History of heart disease Stroke Grandfather History of heart disease Grandmother Tuberculosis Social History household members: spouse Smoking Status: Former smoker alcohol intake: never Smoking Status: Former smoker Exam Narrative Exam Narrative: GENERAL: [89] year old patient appears stated age. Well-developed patient, in mild distress. HEAD: Atraumatic. Normocephalic. EYES: Pupils equal round and reactive. Extraocular motions intact. No scleral icterus. No injection or drainage. ENT: Nose without bleeding, purulent drainage. Throat without erythema, tonsillar hypertrophy or exudate. Airway patent. NECK: Trachea midline. Non tender CARDIOVASCULAR: Regular rate and rhythm without murmurs, gallops, or rubs. Trave edema b/l l/e RESPIRATORY: Clear to auscultation. Breath sounds equal bilaterally. No wheezes, rales, or rhonchi. GASTROINTESTINAL: Abdomen soft, non-tender, nondistended. EXTREMITIES: No edema or joint tenderness. BACK: Nontender without deformity or crepitance. No flank tenderness. NEURO: AOx3. GCS 15 nonfocal neuro exam SKIN: No rash or erythema of visible areas Initial Vital Signs Initial Vital Signs: Vital Signs Temperature 97.8 F 12/13/24 17:23 Pulse Rate 66 12/13/24 17:23 Respiratory Rate 16 12/13/24 17:23 Blood Pressure 141/75 H 12/13/24 17:23 Pulse Oximetry 97 12/13/24 17:23 Oxygen Delivery Method Room Air 12/13/24 17:23 Scores HEART Score Heart Score history: Slightly Suspicious Heart Score EKG: Normal Heart Score Age: > or = 65 years old Heart Score risk factors: > 3 risk factors or hx of atherosclerotic disease Heart Score troponin: 1-3 times normal limit Heart Score Total: 5 Course Orders Ordered: ED Orders 12/13/24 18:18 CT head/brain wo con Stat 12/13/24 20:00 Trop I [Troponin I] Stat 12/13/24 21:17 EKG-12 Lead Routine Discontinued Medications Acetaminophen (Acetaminophen 325 Mg Tablet) 650 mg PO NOW ONE Stop: 12/13/24 20:45 Last Admin: 12/13/24 20:48 Dose: 650 mg Documented By: CHRISTIANO Aspirin (Aspirin 81 Mg Chew Tab) 324 mg PO NOW ONE Stop: 12/13/24 17:29 Last Admin: 12/13/24 17:38 Dose: 324 mg Documented By: FABIOLA Furosemide (Furosemide 40 Mg/4 Ml Vial) 20 mg IV NOW ONE Stop: 12/13/24 22:19 Last Admin: 12/13/24 22:22 Dose: 20 mg Documented By: CHRISTIANO Nitroglycerin (Nitroglycerin 0.4 Mg Sl Tab) 0.4 mg SL NOW ONE Stop: 12/13/24 19:02 Last Admin: 12/13/24 19:04 Dose: 0.4 mg Documented By: PAULETTE Vital Signs Vital signs: Vital Signs - 8 hr 12/13/24 19:30 12/13/24 19:30 12/13/24 20:00 Pulse Rate 60 Respiratory Rate 19 Blood Pressure 143/72 H 157/73 H Pulse Oximetry 100 Oxygen Delivery Method Room Air 12/13/24 20:00 12/13/24 20:30 12/13/24 20:30 Pulse Rate 60 63 Respiratory Rate 19 21 Blood Pressure 164/75 H Pulse Oximetry 100 98 Oxygen Delivery Method Room Air Room Air 12/13/24 21:00 12/13/24 21:01 12/13/24 21:01 Pulse Rate 62 63 Respiratory Rate 21 21 Blood Pressure 182/81 H Pulse Oximetry 99 99 Oxygen Delivery Method 12/13/24 21:30 12/13/24 21:34 12/13/24 21:34 Pulse Rate 90 61 Respiratory Rate 23 22 Blood Pressure 175/81 H Pulse Oximetry 97 97 Oxygen Delivery Method Room Air 12/13/24 22:00 12/13/24 22:01 12/13/24 22:01 Pulse Rate 61 59 L Respiratory Rate 24 19 Blood Pressure 166/78 H Pulse Oximetry 97 97 Oxygen Delivery Method Room Air MDM - Chest Pain Lab Data 12/13/24 17:40 12/13/24 17:40 Labs: Lab Results 06/30/25 06/30/25 Range/Units 17:40 20:00 WBC 6.5 (4.5-11.0) X10^3/uL RBC 4.28 L (4.5-5.9) X10^6/uL Hgb 13.5 (13.5-17.5) g/dL Hct 40.5 L (41-53) % MCV 94.7 (80-100) fL MCH 31.6 (26-34) PG MCHC 33.3 (30-36) % RDW 12.8 (11.6-14.8) % Plt Count 179 (150-400) X10^3/uL Neut % (Auto) 60.0 (50-75) % Lymph % (Auto) 27.8 (25-40) % [place] % (Auto) 9.2 (3-14) % Eos % (Auto) 2.0 (2-4) % Baso % (Auto) 1.0 (0-2) % Neut # (Auto) 3900 (7062-3368) /uL Lymph # (Auto) 1800 (6100-1533) /uL [place] # (Auto) 600 (0-900) /uL Eos # (Auto) 100 (0-450) /uL Baso # (Auto) 100 (0-100) /uL PT 11.2 (9.4-12.5) SECONDS INR 1.0 (0.9-1.3) APTT 29 (25.1-36.5) SECONDS Sodium 138 (137-145) mmol/L Potassium 4.3 (3.4-5.1) mmol/L Chloride 107 (98-107) mmol/L Carbon Dioxide 25 (22-32) mmol/L BUN 27 H (9-20) mg/dL Creatinine 0.82 (0.66-1.25) mg/dL Estimated GFR > 60 (>60) mL/min BUN/Creatinine Ratio 32.9 H (6-22) Glucose 123 H (70-99) mg/dL Calcium 9.4 (8.4-10.2) mg/dL Magnesium 2.0 (1.6-2.3) mg/dL Total Bilirubin 0.4 (0.2-1.3) mg/dL AST 30 (17-59) IU/L ALT 20 (<50) IU/L Alkaline Phosphatase 67 (38-126) U/L Total Creatine Kinase 64 (55-170) U/L Troponin I 0.032 0.039 H (0.01-0.034) ng/mL NT-Pro-B Natriuret Pep 367 (<450) pg/mL Total Protein 7.0 (6.3-8.2) g/dL Albumin 4.3 (3.5-5.0) g/dL Globulin 2.7 (1.7-4.1) g/dL Albumin/Globulin Ratio 1.6 (1.0-2.8) Lipase 78 (23-300) U/L Imaging Data CT scan - head: Radiologist's Impression: [address] [address] [address] Scan Report Signed Patient: Sameer Xavier I MR#: [id number] : 1935 Acct:[id number] Age/Sex: 89 / M Date of Service: 12/13/24 Loc: ED Accession Number: [id number] Procedure: CT head/brain wo con Ordering Provider: Edinson Wiggins D.O. PROCEDURE: CT HEAD/BRAIN WO CON INDICATIONS: headache TECHNIQUE: Noncontrast 4.5 mm thick angled axial sections acquired from the foramen magnum to the vertex, with coronal and sagittal reformats. For radiation dose reduction, the following was used: automated exposure control, adjustment of mA and/or kV according to patient size. COMPARISON: [facility], CT, HEAD WITHOUT CONTRAST, 09/03/2015, 20:39. FINDINGS: Image quality: Diagnostic. CSF spaces: Basal cisterns are patent. No extra-axial fluid collections. The ventricles are symmetric in size and shape. Brain: No intracranial bleeds or mass effect. There is cerebral volume loss, with resultant ventricular and sulcal prominence. There are periventricular and deep white matter chronic small vessel ischemic changes. There is intracranial internal carotid artery atherosclerosis. Skull and face: Calvarium and visualized facial bones appear intact, without suspicious lesions. Sinuses: Visualized sinuses and mastoids are clear. IMPRESSION: No acute intracranial pathology. Age related volume loss and mild white matter small vessel chronic ischemic changes. Chest x-ray: Radiologist's Impression: c: ED Accession Number: [id number] Procedure: XR chest 1V Ordering Provider: Obdulia Downs MD PROCEDURE: XR CHEST 1V INDICATIONS: Chest Pain TECHNIQUE: One view of the chest was acquired. COMPARISON: [facility], CR, XR CHEST 1V, 06/21/2024, 19:35. FINDINGS: Surgical changes and devices: None. Lungs and pleura: Lungs are clear. No pleural effusions or pneumothorax. Mediastinum: Mediastinal contours appear normal. Heart size is normal. Bones and chest wall: No suspicious bony lesions. Overlying soft tissues appear unremarkable. IMPRESSION: No acute cardiopulmonary pathology. ECG Data Interpretation: SR w / PVC HR 66 OH 186 QRS [address]-t wave change Change 06/21/24 MDM Narrative Medical decision making narrative: Vital signs, nurse triage note, medication list, previous ER visit, and all imaging studies reviewed. Troponin initially is 0.032 2nd set 0.039. Heart score 5. EKG sinus rhythm with no ST T wave changes. Patient given aspirin, nitro SL x 1, lasix 20mg IV x 1 here. Patient completely pain-free at this time. Case discussed with Dr. Ibrahim cardiology no acute intervention at this time. Patient was offered admission and declined. Differential diagnosis includes STEMI NSTEMI unstable angina CHF. DC home and to follow up PCP this week. Discharge Plan Departure Patient Disposition: Home Clinical Impression: Leg edema Chest pain Qualifiers: Chest pain type: chest pain on breathing Qualified Code(s): R07.1 - Chest pain on breathing Instructions: DI for Chest Pain Activity Restrictions/Additional Instructions: Return with new or worsening symptoms. Take your medicines as directed. Follow up PCP in 1-2 days for re-evaluation. Prescriptions: New furosemide [Lasix] 20 mg tablet 20 mg PO DAILY Qty: 2 0RF No Action ezetimibe 10 mg tablet 10 mg PO DAILY liothyronine 5 mcg tablet 5 mcg PO DAILY aspirin 81 MG tablet,delayed release (DR/EC) 81 mg PO QDAY Qty: 0 levothyroxine 75 mcg tablet 75 mcg PO DAILY Qty: 90 3RF metformin 500 mg tablet 500 mg PO DAILY Qty: 90 3RF losartan 25 mg tablet 25 mg PO DAILY Qty: 90 3RF metoprolol succinate 25 mg tablet extended release 24 hr 12.5 mg PO DAILY Fish Oil 120-180 mg Capsule 1 cap PO DAILY vit C-vit X-ohjwla-bkp-om-3 123-47-5-100 hg-yjkg-ht-mg Capsule 1 cap PO DAILY nitroglycerin 0.4 mg tablet, sublingual 0.4 mg sublingual Q5M PRN (Reason: chest pain) Qty: 20 0RF Rx Instructions: do not exceed 3 doses per episode fluorouracil 5 % cream 1 applic topical BID PRN (Reason: Precancerous lesions on face and scalp) Repatha SureClick 140 mg/mL pen injector 140 mg SUBCUT Q2W Referrals: Devi Prieto MD [Primary Care Provider, Family Practice] Stand Alone Forms: Patient Portal/API
[2024-12-13 18:11] LABS: NT-proBNP (BNP-Adult 18+) 367 pg/mL (<450); Troponin I 0.032 ng/mL (0.01-0.034)
--- NOTE | 2024-12-13 18:18 | DI.CT.S_ITS ---
PROCEDURE: CT HEAD/BRAIN WO CON INDICATIONS: headache TECHNIQUE: Noncontrast 4.5 mm thick angled axial sections acquired from the foramen magnum to the vertex, with coronal and sagittal reformats. For radiation dose reduction, the following was used: automated exposure control, adjustment of mA and/or kV according to patient size. COMPARISON: [facility], CT, HEAD WITHOUT CONTRAST, 09/03/2015, 20:39. FINDINGS: Image quality: Diagnostic. CSF spaces: Basal cisterns are patent. No extra-axial fluid collections. The ventricles are symmetric in size and shape. Brain: No intracranial bleeds or mass effect. There is cerebral volume loss, with resultant ventricular and sulcal prominence. There are periventricular and deep white matter chronic small vessel ischemic changes. There is intracranial internal carotid artery atherosclerosis. Skull and face: Calvarium and visualized facial bones appear intact, without suspicious lesions. Sinuses: Visualized sinuses and mastoids are clear. IMPRESSION: No acute intracranial pathology. Age related volume loss and mild white matter small vessel chronic ischemic changes. Dictated by: Tobin Tovar M.D. on 12/13/2024 at 18:38 Approved by: Tobin Tovar M.D. on 12/13/2024 at 18:39
[2024-12-13] MEDS: NITROGLYCERIN 0.4 MG SL TAB SL (19:04)
[2024-12-13 20:30] LABS: Troponin I 0.039 ng/mL (0.01-0.034)
[2024-12-13] MEDS: ACETAMINOPHEN 325 MG TABLET 650 MG PO (20:48)
--- NOTE | 2024-12-13 21:17 | EKG_ITS ---
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
--- NOTE | 2024-12-13 22:15 | PC.NURSE ---
Pt denies any chest tightness/pain at this time. Was able to ambulate to the restroom with no assist.
[2024-12-13] MEDS: FUROSEMIDE 40 MG/4 ML VIAL 20 MG IV (22:22)
== END 2024-12-13 22:40 | disposition home or self-care (01) ==
PROVIDERS: Emergency Medicine; Emergency Provider Family Medicine; PCP Student in an Organized Health Care Education/Training Program
DX: R07.1 Chest pain on breathing (principal); R60.0 Localized edema; R51.9 Headache, unspecified
CPT/HCPCS: 36415; 70450; 71045; 80053; 82550; 83690; 83735; 83880; 84484; 85025; 85610; 85730; 93005; 93010; 96374; 99284; J1938

== ENCOUNTER → 2024-12-14 15:24 | Outpatient (CLI) | payer MEDICARE, SELFPAY ==
[2024-04-19 11:57] VITALS: BMI 23.6
[2024-12-14 18:51] LABS: TSH w/ Reflex to FT4 1.48 uIU/mL (0.47-4.68)
[2024-12-14 19:18] LABS: Hemoglobin A1C% w Est Avg Glu 6.2 % (4.0-6.0)
== END ==
PROVIDERS: PCP Student in an Organized Health Care Education/Training Program; Referring Provider Family Medicine; Visit Provider Family Medicine
DX: E11.9 Type 2 diabetes mellitus without complications (principal)
CPT/HCPCS: 36415; 83036; 84443

== ENCOUNTER → 2025-04-10 14:46 | Outpatient (CLI) | payer MEDICARE, SELFPAY ==
[2024-04-19 11:57] VITALS: BMI 23.6
--- NOTE | 2025-04-10 14:47 | DI.MRI.S_ITS ---
PROCEDURE: MR LUMBAR SPINE WO CON INDICATIONS: H/O Lumbar Stenosis, Bilateral leg pain TECHNIQUE: Noncontrast sagittal T1 spin echo and T2 fast echo, sagittal STIR, and T2 fast spin echo through the lumbar spine. In cases with scoliosis, additional coronal T2 fast spin echo may be performed. COMPARISON: None. FINDINGS: Image quality: Excellent. Alignment and Curvature: Grade 1 retrolisthesis of L5 on S1. Bone Marrow: Marrow is of normal overall signal. No acute vertebral body compression fractures. Schmorl's nodes at the L3 inferior endplate. Spinal Cord: Conus medullaris terminates at the L1 level. Visualized cord demonstrates normal signal and size. Paraspinous Soft Tissues: No paravertebral masses. T2 hyperintense cysts in the right posterior interpolar kidney. T12-L1: Normal appearance. L1-L2: No spinal canal stenosis. Mild bilateral facet arthrosis. No neural foraminal stenosis. L2-L3: Mild spinal canal stenosis due to symmetric, diffusely bulging disc and mild bilateral facet arthrosis. No neural foraminal stenosis. L3-L4: Mild spinal canal stenosis due to symmetric, diffusely bulging disc and facet arthrosis. No neural foraminal stenosis. L4-L5: Moderate spinal canal and severe bilateral lateral recess stenosis due to symmetric, diffusely bulging disc, ligamentum flavum thickening, and facet arthrosis. Right mild and left moderate neural foraminal stenosis due to subarticular bulging disc and facet arthrosis. L5-S1: Mild bilateral lateral recess stenosis due to retrolisthesis and disc uncovering. Right moderate and left mild neural foraminal stenosis due to retrolisthesis and facet arthrosis. IMPRESSION: 1. Grade 1 retrolisthesis of L5 on S1. 2. Multilevel spinal canal stenosis reaches moderate at L4-5. 3. Multilevel neural foraminal stenosis is moderate on the left at L4-5 and on the right at L5-S1. Dictated by: Freddy Naylor M.D. on 04/11/2025 at 13:08 Approved by: Freddy Naylor M.D. on 04/11/2025 at 13:13
== END ==
LOC: MRI 14:46
PROVIDERS: PCP Student in an Organized Health Care Education/Training Program; Referring Provider Student in an Organized Health Care Education/Training Program; Visit Provider Student in an Organized Health Care Education/Training Program
DX: M48.061 Spinal stenosis, lumbar region without neurogenic claudication (principal); M48.07 Spinal stenosis, lumbosacral region; M43.17 Spondylolisthesis, lumbosacral region; M47.816 Spondylosis without myelopathy or radiculopathy, lumbar region; M47.817 Spondylosis without myelopathy or radiculopathy, lumbosacral region; M79.604 Pain in right leg; M79.605 Pain in left leg
CPT/HCPCS: 72148

== ENCOUNTER → 2025-05-09 11:30 | Outpatient (CLI) | payer MEDICARE, SELFPAY ==
[2024-04-19 11:57] VITALS: BMI 23.6
[2025-05-09 14:39] LABS: Add Manual Diff / Slide Review NO; Hematocrit 40.9 % (41-53); Hemoglobin 13.8 g/dL (13.5-17.5); Lymphocytes Absolute Auto 2000 /uL (1100-4500); Mean Corpuscular HGB Conc 33.8 % (30-36); Mean Corpuscular Hemoglobin 31.6 PG (26-34); Mean Corpuscular Volume 93.4 fL (80-100); Platelet Count 175 X10^3/uL (150-400)
[2025-05-09 14:40] LABS: Microalbumi Creatinin Ratio Ur 27.0 ug/mg CR (<30)
[2025-05-09 14:47] LABS: Hemoglobin A1C% w Est Avg Glu 6.7 % (4.0-6.0)
[2025-05-09 15:01] LABS: Alanine Aminotransferase 16 IU/L (<50); Albumin 4.3 g/dL (3.5-5.0); Albumin Globulin Ratio 1.8 (1.0-2.8); Alkaline Phosphatase 60 U/L (38-126); Blood Urea Nitrogen 27 mg/dL (9-20); Calcium 9.9 mg/dL (8.4-10.2); Carbon Dioxide 27 mmol/L (22-32); Chloride 106 mmol/L (98-107); Cholesterol 136 mg/dL (140-199); Estimated Glomerular Filt Rate > 60 mL/min (>60); Globulin 2.4 g/dL (1.7-4.1); Glucose 98 mg/dL (70-99); HDL Cholesterol 59 mg/dL (40-60); HEMOLYSIS < 15 (0-50); Sodium 140 mmol/L (137-145); Total Protein 6.7 g/dL (6.3-8.2); Triglycerides 311 mg/dL (35-150)
[2025-05-09 15:04] LABS: Potassium 5.4 mmol/L (3.4-5.1)
== END ==
PROVIDERS: PCP Student in an Organized Health Care Education/Training Program; Referring Provider Student in an Organized Health Care Education/Training Program; Visit Provider Student in an Organized Health Care Education/Training Program
DX: E11.9 Type 2 diabetes mellitus without complications (principal); Z86.73 Personal history of transient ischemic attack (TIA), and cerebral infarction without residual deficits; I25.2 Old myocardial infarction; I25.10 Atherosclerotic heart disease of native coronary artery without angina pectoris
CPT/HCPCS: 36415; 80053; 80061; 82043; 82570; 83036; 85025

== ENCOUNTER 2025-05-27 09:50 | Emergency (ER) | payer MEDICARE, SELFPAY ==
[2024-04-19 11:57] VITALS: BMI 23.6
[2025-05-27] VITALS (17 sets, daily range): BP systolic 129–190; BP diastolic 65–89; PULSE 52–83; RESP 18–27; TEMP 36.6; O2SAT 95–97; BMI 24.0
--- NOTE | 2025-05-27 10:11 | EKG_ITS ---
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
--- NOTE | 2025-05-27 10:19 | DI.CT.S_ITS ---
PROCEDURE: CT CERVICAL SPINE WO CON INDICATIONS: chest pain, fall 2 weeks ago. TECHNIQUE: Noncontrast 3 mm thick sections acquired from the skull base to the T4 level. Sagittal and coronal reformats were then constructed. For radiation dose reduction, the following was used: automated exposure control, adjustment of mA and/or kV according to patient size. COMPARISON: None. FINDINGS: Image quality: Excellent. Bones: No fractures or dislocations. Visualized superior ribs are intact. Multilevel degenerative changes are present. Soft tissues: Prevertebral soft tissues are normal in thickness. No paravertebral hematomas. No apical pneumothoraces. IMPRESSION: No displaced fracture or traumatic subluxation. Dictated by: Damaris Victoria M.D. on 05/27/2025 at 10:47 Approved by: Damaris Victoria M.D. on 05/27/2025 at 10:47
--- NOTE | 2025-05-27 10:19 | DI.RAD.S_ITS ---
PROCEDURE: XR CHEST 1V INDICATIONS: chest pain, fall 2 weeks ago. TECHNIQUE: One view of the chest was acquired. COMPARISON: [facility], CR, XR CHEST 1V, 12/13/2024, 17:31. FINDINGS: Surgical changes and devices: None. Lungs and pleura: Lungs are clear. No pleural effusions or pneumothorax. Mediastinum: Mediastinal contours appear normal. Heart size is normal. Bones and chest wall: No suspicious bony lesions. Overlying soft tissues appear unremarkable. IMPRESSION: No acute pulmonary process. Dictated by: Damaris Victoria M.D. on 05/27/2025 at 10:48 Approved by: Damaris Victoria M.D. on 05/27/2025 at 10:49
--- NOTE | 2025-05-27 10:19 | DI.CT.S_ITS ---
PROCEDURE: CT HEAD/BRAIN WO CON INDICATIONS: fall 2wks ago, quijano, worsening dizzy, hx dizzy TECHNIQUE: Noncontrast 4.5 mm thick angled axial sections acquired from the foramen magnum to the vertex, with coronal and sagittal reformats. For radiation dose reduction, the following was used: automated exposure control, adjustment of mA and/or kV according to patient size. COMPARISON: [facility], CT, CT HEAD/BRAIN WO CON, 12/13/2024, 18:20. FINDINGS: Image quality: Diagnostic. CSF spaces: Basal cisterns are patent. No extra-axial fluid collections. The ventricles are symmetric in size and shape. Brain: No intracranial bleeds or mass effect. There is cerebral volume loss, with resultant ventricular and sulcal prominence. There are periventricular and deep white matter chronic small vessel ischemic changes. There is intracranial internal carotid artery atherosclerosis. Skull and face: Calvarium and visualized facial bones appear intact, without suspicious lesions. Sinuses: Visualized sinuses and mastoids are clear. IMPRESSION: 1. No acute intracranial process. 2. Moderate atrophy and chronic microvascular ischemic changes. Dictated by: Damaris Victoria M.D. on 05/27/2025 at 10:46 Approved by: Damaris Victoria M.D. on 05/27/2025 at 10:46
--- NOTE | 2025-05-27 10:20 | ED.TRAUMA ---
HPI - Trauma General Chief Complaint: Trauma Stated Complaint: FALL, DIZZINESS, HEADACHE, NECK STIFFNESS, CHEST P Time Seen by Provider: 05/27/25 10:03 Source: patient, family, RN notes reviewed and old records reviewed Mode of arrival: Family Vehicle Limitations: no limitations History of Present Illness HPI narrative: 89-year-old male history of coronary artery disease x3 stents, prior stroke, prior traumatic subdural, on aspirin, Plavix, hypertension, diabetes, dyslipidemia presents with complaint of a fall 2 weeks ago. Patient states he tripped fell forward hit his forehead. Since then he has had persistent dizziness that has been a little bit worse the last few days. He notes he has chronic dizziness at baseline he has been seen in a clinic for vertigo. He states the character is similar but intensity has been somewhat more intense lately. Patient states no other acute neurologic changes. He does note headaches, he has had some neck stiffness particularly in the left side with movement. He also notes today has a little bit of left-sided chest pressure without radiation. He states it might be musculoskeletal but he is unsure. He denies any new shortness of breath. No fevers no cold, cough or congestion symptoms. No nausea or vomiting. No diaphoresis. No issues with bowel movements or urination that are new. He does sometimes have some constipation. He denies any recent swelling in the extremities. He states no new medication changes. He has had prior cardiac stents states his last heart attack he was told they could not reach the lesion and required medical manage only and was started on what sounds like Imdur. No tobacco, no alcohol, no recreational drugs. Patient is accompanied by his . Related Data Home Medications ?Medication ?Instructions ?Recorded ?Confirmed aspirin 81 mg tablet,delayed 81 mg PO QDAY ##0 09/10/11 05/03/25 release ezetimibe 10 mg tablet 10 mg PO DAILY 04/22/23 05/03/25 docosahexaenoic acid (dha)-epa 120 1 cap PO DAILY 09/22/23 05/03/25 mg-180 mg capsule (Fish Oil) metoprolol succinate 25 mg 12.5 mg PO DAILY 09/22/23 05/03/25 tablet,extended release 24 hr vit C-vit T-svvueg-tuboxjbq-omega 1 cap PO DAILY 09/22/23 05/03/25 3 100 mg-15 unit-2 mg-100 mg capsule evolocumab 140 mg/mL subcutaneous 140 mg SUBCUT Q2W 04/12/24 05/03/25 pen injector (Fito Ramos) clopidogrel 75 mg tablet 75 mg PO DAILY 12/14/24 05/03/25 gabapentin 100 mg capsule 100 - 300 mg PO ONCE PM 02/10/25 05/03/25 isosorbide mononitrate 30 mg 30 mg PO DAILY 02/10/25 05/03/25 tablet,extended release 24 hr Previous Rx's ?Medication ?Instructions ?Recorded nitroglycerin 0.4 mg sublingual 0.4 mg sublingual Q5M PRN chest 09/23/23 tablet pain #20 tabs metformin 500 mg tablet 500 mg PO DAILY #90 tabs 07/19/24 losartan 25 mg tablet 25 mg PO DAILY #90 tabs 08/24/24 furosemide 20 mg tablet (Lasix) 20 mg PO DAILY #2 tabs 12/13/24 levothyroxine 75 mcg tablet 75 mcg PO DAILY #90 tabs 03/01/25 hydrocodone 5 mg-acetaminophen 325 1 tab PO Q6H PRN pain #7 tabs 05/27/25 mg tablet Allergies Allergy/AdvReac Type Severity Reaction Status Date / Time tetracycline (TETRACYCLINE) Allergy Intermediate UNKNOWN Verified 05/27/25 10:04 ciprofloxacin (From [facility] HC) AdvReac Intermediate muscle Verified 05/27/25 10:04 aches hydrocortisone (From C[facility]RO AdvReac Intermediate muscle Verified 05/27/25 10:04 HC) aches testosterone (TESTOSTERONE) AdvReac Intermediate muscle Verified 05/27/25 10:04 aches LIPID Allergy Unknown Uncoded 05/27/25 10:04 Review of Systems Review of Systems ROS Unobtainable: All systems reviewed & are unremarkable except as noted in HPI and below Patient History Medical History Spondylolisthesis of lumbar region Lumbar stenosis without neurogenic claudication Restless leg syndrome Incomplete emptying of bladder Neck pain (05/24/03) Hypothyroidism (09/07/04) Headache (12/02/02) Dizziness (05/20/02) Vaccin hem influenza B (05/06/02) Sprain, neck (05/06/02) Seborrheic keratosis, inflamed (05/24/03) Routine medical exam (07/21/02) Peripheral vascular disease, unspecified (05/24/03) Malaise and fatigue (05/20/02) Influenza vaccine administered (04/06/03) Hyperlipidemia, unspecified (09/07/04) Hematuria (09/28/03) Actinic keratosis (05/24/03) Abdominal pain (09/28/03) Bladder outlet obstruction History of tobacco use Lower urinary tract symptoms Inguinal hernia bilateral, non-recurrent Rosacea Rheumatoid arthritis Sleep apnea Headache Leg pain Osteopenia MGUS (monoclonal gammopathy of unknown significance) Hearing loss Cataracts, bilateral Benign prostate hyperplasia Low testosterone Hypothyroidism (~1957) Hypertension Skin cancer Type 2 diabetes mellitus Hx of subdural hematoma Monoclonal gammopathies Polymyalgia rheumatica Hx of acute myocardial infarction (~2019) Dizziness Benign paroxysmal vertigo Surgical History H/O vasectomy Anesthesia Subdural hematoma (~08/2022) History of coronary artery stent placement (~2019) S/P TURP (~2020) Family History Mother Stroke Brother History of heart disease Stroke Grandfather History of heart disease Grandmother Tuberculosis Social History household members: spouse Smoking Status: Former smoker alcohol intake: never Smoking Status: Former smoker tobacco type: cigarettes Exam Narrative Exam Narrative: GEN: well nourished, well appearing male, alert and oriented x 3, patient appears to be in mild distress. HEENT: Atraumatic, pupils are equal round reactive to light, extraocular movements are intact, nares are clear, TMs are clear with no fluid, there is no conjunctival pallor. Throat is clear without any exudates, erythema, tonsillar enlargement or uvular deviation, no cervical vertebral tenderness, full range of motion. HEART: Regular rate and rhythm without murmur, clicks, rubs. Pulses are equal in upper and lower extremities LUNGS:Lungs clear to auscultation, no wheezes, rales, crackles, chest moves symmetrically ABD:bowel sounds normal, soft, non-tender, no guarding, rebound, rigidity, no masses noted, no hepatosplenomegaly :No CVA tenderness MSCL: Non-tender, no muscle atrophy, muscles strength 5/5 upper and lower extremities, full range of motion NEURO:CN 2-12 intact, sensation normal, reflexes 2/4 upper and lower extremities. finger nose finger test normal, heel kohler test normal. Initial Vital Signs Initial Vital Signs: Vital Signs Pulse Rate 57 L 05/27/25 10:00 Blood Pressure 190/86 H 05/27/25 10:00 Pulse Oximetry 97 05/27/25 10:00 Course Orders Ordered: ED Orders 05/27/25 10:10 Complete Blood Count AUTO DIFF Stat Comprehensive Metabolic Panel Stat Lipase Stat Magnesium Stat NT-proBNP (BNP-Adult 18+) Stat Troponin I Stat 05/27/25 10:19 CT cervical spine wo con Stat CT head/brain wo con Stat XR chest 1V Stat EKG-12 Lead Stat 05/27/25 12:10 Trop I [Troponin I] Stat 05/27/25 12:25 EKG-12 Lead Stat 05/27/25 15:10 Trop I [Troponin I] Stat Discontinued Medications Hydrocodone Bitart/Acetaminophen (Hydrocodone/Acet 5/325 Tablet) 1 tab PO NOW ONE Stop: 05/27/25 13:05 Last Admin: 05/27/25 13:22 Dose: 1 tab Documented By: WADE Vital Signs Vital signs: Vital Signs - 8 hr 05/27/25 10:00 05/27/25 10:00 05/27/25 10:05 Temperature 97.8 F Pulse Rate 57 L 63 Respiratory Rate 18 Blood Pressure 190/86 H 190/86 H Pulse Oximetry 97 96 Oxygen Delivery Method Room Air 05/27/25 10:20 05/27/25 10:20 05/27/25 11:00 Temperature Pulse Rate 56 L Respiratory Rate 27 H Blood Pressure 155/82 H 136/78 Pulse Oximetry 97 Oxygen Delivery Method 05/27/25 11:30 05/27/25 11:30 05/27/25 12:00 Temperature Pulse Rate 52 L 55 L Respiratory Rate 20 Blood Pressure 130/81 Pulse Oximetry 96 96 Oxygen Delivery Method Room Air 05/27/25 12:00 05/27/25 12:30 05/27/25 13:01 Temperature Pulse Rate 83 63 Respiratory Rate Blood Pressure 137/78 Pulse Oximetry Oxygen Delivery Method 05/27/25 13:30 05/27/25 13:54 05/27/25 13:54 Temperature Pulse Rate 54 L 57 L Respiratory Rate 22 Blood Pressure 151/80 H Pulse Oximetry 97 97 Oxygen Delivery Method Room Air 05/27/25 14:00 05/27/25 14:00 05/27/25 14:30 Temperature Pulse Rate 63 59 L Respiratory Rate Blood Pressure 154/89 H Pulse Oximetry 97 95 Oxygen Delivery Method 05/27/25 14:31 05/27/25 14:31 05/27/25 15:00 Temperature Pulse Rate 73 67 Respiratory Rate Blood Pressure 154/75 H Pulse Oximetry 95 97 Oxygen Delivery Method 05/27/25 15:01 05/27/25 15:01 05/27/25 15:30 Temperature Pulse Rate 73 58 L Respiratory Rate Blood Pressure 153/65 H Pulse Oximetry 97 96 Oxygen Delivery Method Room Air 05/27/25 15:30 05/27/25 16:00 05/27/25 16:00 Temperature Pulse Rate 58 L Respiratory Rate Blood Pressure 135/73 129/70 Pulse Oximetry 96 Oxygen Delivery Method Room Air MDM - Trauma Lab Data 05/27/25 10:10 05/27/25 10:10 Labs: Lab Results 05/27/25 05/27/25 05/27/25 Range/Units 10:10 12:10 15:10 WBC 7.1 (4.5-11.0) X10^3/uL RBC 4.57 (4.5-5.9) X10^6/uL Hgb 14.5 (13.5-17.5) g/dL Hct 42.7 (41-53) % MCV 93.4 (80-100) fL MCH 31.8 (26-34) PG MCHC 34.0 (30-36) % RDW 13.4 (11.6-14.8) % Plt Count 186 (150-400) X10^3/uL Neut % (Auto) 64.4 (50-75) % Lymph % (Auto) 24.1 L (25-40) % Irwin % (Auto) 9.1 (3-14) % Eos % (Auto) 1.4 L (2-4) % Baso % (Auto) 1.0 (0-2) % Neut # (Auto) 4600 (1667-5698) /uL Lymph # (Auto) 1700 (2022-0047) /uL Irwin # (Auto) 600 (0-900) /uL Eos # (Auto) 100 (0-450) /uL Baso # (Auto) 100 (0-100) /uL Sodium 141 (137-145) mmol/L Potassium 4.5 (3.4-5.1) mmol/L Chloride 107 (98-107) mmol/L Carbon Dioxide 25 (22-32) mmol/L BUN 28 H (9-20) mg/dL Creatinine 0.93 (0.66-1.25) mg/dL Estimated GFR > 60 (>60) mL/min BUN/Creatinine Ratio 30.1 H (6-22) Glucose 197 H (70-99) mg/dL Calcium 9.7 (8.4-10.2) mg/dL Magnesium 2.0 (1.6-2.3) mg/dL Total Bilirubin 0.6 (0.2-1.3) mg/dL AST 30 (17-59) IU/L ALT 20 (<50) IU/L Alkaline Phosphatase 67 (38-126) U/L Troponin I 0.033 0.043 H 0.034 (0.01-0.034) ng/mL NT-Pro-B Natriuret Pep 421 (<450) pg/mL Total Protein 7.0 (6.3-8.2) g/dL Albumin 4.4 (3.5-5.0) g/dL Globulin 2.6 (1.7-4.1) g/dL Albumin/Globulin Ratio 1.7 (1.0-2.8) Lipase 77 (23-300) U/L [facility] Narrative Medical decision making narrative: Labs white count of 7.1 hemoglobin 14.5 platelets of 186, electrolytes are appropriate, BUN 28 creatinine 0.93 glucose is 197 LFTs are appropriate troponin 0.033 with a BNP of 421. Lipase is 77. Repeat troponin is trending upwards at 0.043. Third troponin is 0.034 EKG shows sinus bradycardia nonspecific ST change rate of 58 RI 184 QRS is 76 QTC of 3 69. Patient has a little bit of what appears to be motion artifact in V2 V5. Repeat EKG shows elevation of 1 beat in lead V3 no other elevation appreciated nonspecific change. Head CT shows no acute intracranial process moderate atrophy chronic micro vascular ischemic changes. CT cervical spine shows no displaced fracture or traumatic subluxation. Chest x-ray no acute pulmonary process Reviewed findings with the patient he has got chronic dizziness but not acutely different other than has been a little bit more intense lately. Has not neurologic exam is normal. Patient finds this reassuring. Did not little bit of chest discomfort earlier today so we will repeat his troponin and EKG. Patient is also asking about was referred to follow up with his physician to start ropirinole by Dr. Morales after follow up for pain management patient has tried gabapentin without any success he tried to set up follow up with his primary care physician but was unsuccessful. Discussed with the patient you can try a trial the ropiranole although there is a possibility it may also make his dizziness worse. Spoke with Dr. Chand, cardiology patient has not indeterminate elevation in his troponin did have little bit of chest discomfort today states that he has been told that he did has a lesion but was unable to be stented was changed to a long-acting nitrate at that time. He has been taking all of his medications. He denies chest pressure currently. He recommend serial troponin her in department if trending down words does not require further intervention if trending upwards to call back. Discussed with the patient about keeping for observation versus repeating troponin here in the department he would prefer to repeat troponin here in the department. He notes that his legs are uncomfortable chronically had asked for a dose of pain medication. Reviewed findings with the patient and family. We will discharge home patient is to can you on home medications follow up with Cardiology. We discussed starting allopurinol as recommended by Dr. Morales but noted patient could have complications from this. He is reluctant to start it. Discharge Plan Departure Patient Disposition: Home Clinical Impression: Fall, Head injury, Concussion, Chest pain, Dizziness Instructions: DI for Closed Head Injury Activity Restrictions/Additional Instructions: Follow up with your physician. I would also recommend following up with your tie knitter helper. They medication Dr. Morales recommended you try is called ropirinole. This medication can have side effects including causing increased dizziness. You can try [place] 1 tablet every 6 hours as needed. This medication can make you sleepy do not drive, perform hazardous activities or make any major decisions while taking it. This medication will make you constipated please take a stool softener once to twice daily until stools are soft and regular. Prescription sent to [facility] in [place]. Please return if you develop new chest pain or shortness of breath, other new changes, new fevers, difficulty with ambulation or other new or concerning changes. Prescriptions: New hydrocodone-acetaminophen 5-325 mg tablet 1 tab PO Q6H PRN (Reason: pain) Qty: 7 0RF No Action clopidogrel 75 mg tablet 75 mg PO DAILY ezetimibe 10 mg tablet 10 mg PO DAILY isosorbide mononitrate 30 mg tablet extended release 24 hr 30 mg PO DAILY gabapentin 100 mg capsule 100 - 300 mg PO ONCE PM aspirin 81 MG tablet,delayed release (DR/EC) 81 mg PO QDAY Qty: 0 metformin 500 mg tablet 500 mg PO DAILY Qty: 90 3RF losartan 25 mg tablet 25 mg PO DAILY Qty: 90 3RF levothyroxine 75 mcg tablet 75 mcg PO DAILY Qty: 90 3RF metoprolol succinate 25 mg tablet extended release 24 hr 12.5 mg PO DAILY Fish Oil 120-180 mg Capsule 1 cap PO DAILY vit C-vit C-[id number]-zgy-[id number]-3 [id number] yi-gcxl-hg-mg Capsule 1 cap PO DAILY nitroglycerin 0.4 mg tablet, sublingual 0.4 mg sublingual Q5M PRN (Reason: chest pain) Qty: 20 0RF Rx Instructions: do not exceed 3 doses per episode Repatha SureClick 140 mg/mL pen injector 140 mg SUBCUT Q2W furosemide [Lasix] 20 mg tablet 20 mg PO DAILY Qty: 2 0RF Referrals: Devi Prieto MD [Primary Care Provider, Family Practice] Stand Alone Forms: Patient Portal/API
[2025-05-27 10:25] LABS: Add Manual Diff / Slide Review NO; Hematocrit 42.7 % (41-53); Hemoglobin 14.5 g/dL (13.5-17.5); Lymphocytes Absolute Auto 1700 /uL (1100-4500); Mean Corpuscular HGB Conc 34.0 % (30-36); Mean Corpuscular Hemoglobin 31.8 PG (26-34); Mean Corpuscular Volume 93.4 fL (80-100); Platelet Count 186 X10^3/uL (150-400)
[2025-05-27 10:34] LABS: Alanine Aminotransferase 20 IU/L (<50); Albumin 4.4 g/dL (3.5-5.0); Albumin Globulin Ratio 1.7 (1.0-2.8); Alkaline Phosphatase 67 U/L (38-126); Blood Urea Nitrogen 28 mg/dL (9-20); Calcium 9.7 mg/dL (8.4-10.2); Carbon Dioxide 25 mmol/L (22-32); Chloride 107 mmol/L (98-107); Estimated Glomerular Filt Rate > 60 mL/min (>60); Globulin 2.6 g/dL (1.7-4.1); Glucose 197 mg/dL (70-99); HEMOLYSIS < 15 (0-50); Lipase 77 U/L (23-300); Magnesium 2.0 mg/dL (1.6-2.3); Potassium 4.5 mmol/L (3.4-5.1); Sodium 141 mmol/L (137-145); Total Protein 7.0 g/dL (6.3-8.2)
[2025-05-27 10:46] LABS: NT-proBNP (BNP-Adult 18+) 421 pg/mL (<450); Troponin I 0.033 ng/mL (0.01-0.034)
--- NOTE | 2025-05-27 12:25 | EKG_ITS ---
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
[2025-05-27 12:46] LABS: Troponin I 0.043 ng/mL (0.01-0.034)
[2025-05-27 15:53] LABS: Troponin I 0.034 ng/mL (0.01-0.034)
== END 2025-05-27 16:29 | disposition home or self-care (01) ==
PROVIDERS: Emergency Provider Emergency Medicine; PCP Student in an Organized Health Care Education/Training Program
DX: S06.0XAA Concussion with loss of consciousness status unknown, initial encounter (principal); R42 Dizziness and giddiness; M54.2 Cervicalgia; R07.89 Other chest pain; R00.1 Bradycardia, unspecified; I25.10 Atherosclerotic heart disease of native coronary artery without angina pectoris; W01.10XA Fall on same level from slipping, tripping and stumbling with subsequent striking against unspecified object, initial encounter; Z95.5 Presence of coronary angioplasty implant and graft; Z86.73 Personal history of transient ischemic attack (TIA), and cerebral infarction without residual deficits; Z79.02 Long term (current) use of antithrombotics/antiplatelets; Z79.82 Long term (current) use of aspirin; Z87.891 Personal history of nicotine dependence
CPT/HCPCS: 36415; 70450; 71045; 72125; 80053; 83690; 83735; 83880; 84484; 85025; 93005; 99284

== ENCOUNTER → 2025-06-07 08:08 | Outpatient (CLI) | payer MEDICARE, SELFPAY ==
[2024-04-19 11:57] VITALS: BMI 23.6
--- NOTE | 2025-06-07 09:09 | DI.MRI.S_ITS ---
PROCEDURE: MR HEAD/BRAIN WO/W CON INDICATIONS: Dizziness, Fall, Gait abnormaility TECHNIQUE: Noncontrast axial T1 spin echo, axial T2 fast spin echo, sagittal and axial FLAIR, coronal T2 fast spin echo, axial gradient echo, axial diffusion and ADC through the brain. After the administration of contrast, axial and coronal and sagittal T1 spin echo with fat saturation through the brain. COMPARISON: [facility], MR, BRAIN W&WO CONTRAST, 08/28/2016, 12:54. FINDINGS: Image quality: Excellent. CSF spaces: Basal cisterns are patent. No extra-axial fluid collections. Ventricles are normal in size and shape. Brain: No midline shift. Small area of encephalomalacia within the right occipital lobe, consistent with prior infarct. No intracranial bleeds or masses. No abnormal intracranial enhancement. There is cerebral volume loss for age. There is periventricular white matter chronic small vessel ischemic change. The brainstem appears normal. Diffusion-weighted images demonstrate no acute infarct. No chronic ischemic insults. Normal intravascular flow voids are present. Skull and face: Calvarial marrow is normal in signal. Bilateral lens replacements. Otherwise, the orbits are unremarkable. Sinuses: Sinuses and mastoids appear clear. IMPRESSION: No cause for patient's symptoms is identified. No acute intracranial abnormalities or abnormal intracranial enhancement. Age-related global volume loss and chronic microvascular ischemic changes are present. Approved by: Micky Pealyo M.D. on 06/07/2025 at 10:58
[2025-06-07 09:58] LABS: HEMOLYSIS < 15 (0-50); Potassium 4.6 mmol/L (3.4-5.1)
[2025-06-07 10:00] LABS: HEMOLYSIS < 15 (0-50); Iron 163 ug/dL (49-181)
[2025-06-07 10:10] LABS: Percent Iron Saturation 48 % (20-50); Total Iron Binding Capacity 337 ug/dL (261-462); Transferrin 285 mg/dL (206-381)
[2025-06-07 10:38] LABS: Ferritin 52 ng/mL (18-464)
== END ==
LOC: MRI 08:09
PROVIDERS: PCP Student in an Organized Health Care Education/Training Program; Referring Provider Student in an Organized Health Care Education/Training Program; Visit Provider Student in an Organized Health Care Education/Training Program
DX: S06.0XAA Concussion with loss of consciousness status unknown, initial encounter (principal); S09.90XA Unspecified injury of head, initial encounter; R42 Dizziness and giddiness; R89.9 Unspecified abnormal finding in specimens from other organs, systems and tissues; W19.XXXA Unspecified fall, initial encounter
CPT/HCPCS: 36415; 70553; 82728; 83540; 83550; 84132; A9579

== ENCOUNTER 2025-06-10 09:20 | Emergency (ER) | payer MEDICARE, SELFPAY ==
[2024-04-19 11:57] VITALS: BMI 23.6
[2025-06-10] VITALS (39 sets, daily range): BP systolic 112–172; BP diastolic 58–83; PULSE 48–83; RESP 16–34; TEMP 36.3; O2SAT 91–99; BMI 24.0
--- OUTSIDE RECORDS SUMMARY | 2025-06-10 09:22 | XMS_ITS | Encounter Summary ---
Author Organization [facility] Address [address] [place] [address] Care Team Providers Care Concert Manager Name Role Phone Devi Baires MD Primary Care Provider [phone] Encounter Details Date Type Department Care Team ([facility] Contact Info) Description 07/27/2024 Abstract [facility] Health Information Management [address] [place] [address] [facility] Controller, Provider, Social History Tobacco Use Types Packs/Day Years Used Date Smoking Tobacco: Former Cigarettes Pipe Smokeless Tobacco: Never Alcohol Use Standard Drinks/Week Comments Never 0 (1 standard drink = 0.6 oz pur e alcohol) PHQ-2 Answer Date Recorded PHQ-2 Score 0 03/22/2024 Sex and Gender Information Value Date Recorded Sex Assigned at Not on file Legal Sex Male 12:19 PM PDT Gender Identity Not on file Sexual Orientation Not on file documented as of this encounter Plan of Treatment Upcoming Encounters Date Type Department Care Team ([facility] Contact Info) Description 08/31/2025 8:00 AM PDT Lab [facility] [address] [place] [address], [address] [phone] 09/07/2025 10:20 AM PDT Office Visit [facility] Oncology [address], [address] [phone] Dougie Gregg MD [address] [place] [id number] documented as of this encounter Procedures Procedure Name Priority Date/Time Associated Diagnosis Comments LIPID PANEL Routine 07/27/2024 documented in this encounter Results * Lipid panel (07/27/2024) External LDL Cholesterol 90 mg/dL Blood Venous blood / Unknown us Ordering Provider LAB BLOOD ORDERABLES Final Res ult documented in this encounter Visit Diagnoses Not on filedocumented in this encounter Care Teams Concert Manager Relationship Specialty Start Date End Date Devi Baires MD [address] [place] [id number] PCP - General Family Medicine 12/21/24 documented as of this encounter
--- NOTE | 2025-06-10 09:24 | ED.CHESTPAIN ---
HPI - Chest Pain General Chief Complaint: Chest Pain Stated Complaint: Chest pain. Time Seen by Provider: 06/10/25 09:24 History of Present Illness HPI narrative: 89-year-old gentleman history of CAD x3 stent, prior stroke, prior traumatic subdural, on aspirin, Plavix, hypertension, diabetes, dyslipidemia, presents with chest pain for the past 2 days which he woke up at 4:00 a.m. today and took his regular medicines including isosorbide mononitrate went back to sleep and then woke up again and had chest pain again and took 1 nitro he is almost completely pain-free except for a slight twinge in both shoulders. He denies any shortness breath dyspnea on exertion leg pain leg swelling pheresis nausea vomiting. 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 Other than what is stated 14 point review of system is negative. Related Data Home Medications ?Medication ?Instructions ?Recorded ?Confirmed aspirin 81 mg tablet,delayed 81 mg PO QDAY ##0 09/10/11 05/31/25 release ezetimibe 10 mg tablet 10 mg PO DAILY 04/22/23 05/31/25 docosahexaenoic acid (dha)-epa 120 1 cap PO DAILY 09/22/23 05/31/25 mg-180 mg capsule (Fish Oil) metoprolol succinate 25 mg 12.5 mg PO DAILY 09/22/23 05/31/25 tablet,extended release 24 hr vit C-vit Y-ajbowl-cxirngxc-omega 1 cap PO DAILY 09/22/23 05/31/25 3 100 mg-15 unit-2 mg-100 mg capsule evolocumab 140 mg/mL subcutaneous 140 mg SUBCUT Q2W 04/12/24 05/31/25 pen injector (Fito Ramos) clopidogrel 75 mg tablet 75 mg PO DAILY 12/14/24 05/31/25 gabapentin 100 mg capsule 100 - 300 mg PO ONCE PM 02/10/25 05/31/25 isosorbide mononitrate 30 mg 30 mg PO DAILY 02/10/25 05/31/25 tablet,extended release 24 hr Previous Rx's ?Medication ?Instructions ?Recorded nitroglycerin 0.4 mg sublingual 0.4 mg sublingual Q5M PRN chest 09/23/23 tablet pain #20 tabs metformin 500 mg tablet 500 mg PO DAILY #90 tabs 07/19/24 losartan 25 mg tablet 25 mg PO DAILY #90 tabs 08/24/24 furosemide 20 mg tablet (Lasix) 20 mg PO DAILY #2 tabs 12/13/24 levothyroxine 75 mcg tablet 75 mcg PO DAILY #90 tabs 03/01/25 hydrocodone 5 mg-acetaminophen 325 1 tab PO Q6H PRN pain #7 tabs 06/06/25 mg tablet Allergies Allergy/AdvReac Type Severity Reaction Status Date / Time tetracycline (TETRACYCLINE) Allergy Intermediate UNKNOWN Verified 06/10/25 09:31 ciprofloxacin (From [facility] HC) AdvReac Intermediate muscle Verified 06/10/25 09:31 aches hydrocortisone (From [facility]RO AdvReac Intermediate muscle Verified 06/10/25 09:31 HC) aches testosterone (TESTOSTERONE) AdvReac Intermediate muscle Verified 06/10/25 09:31 aches LIPID Allergy Unknown Uncoded 06/10/25 09:31 Review of Systems Review of Systems ROS Unobtainable: All systems reviewed & are unremarkable except as noted in HPI and below Patient History Medical History Spondylolisthesis of lumbar region Lumbar stenosis without neurogenic claudication Restless leg syndrome Incomplete emptying of bladder Neck pain (05/24/03) Hypothyroidism (09/07/04) Headache (12/02/02) Dizziness (05/20/02) Vaccin hem influenza B (05/06/02) Sprain, neck (05/06/02) Seborrheic keratosis, inflamed (05/24/03) Routine medical exam (07/21/02) Peripheral vascular disease, unspecified (05/24/03) Malaise and fatigue (05/20/02) Influenza vaccine administered (04/06/03) Hyperlipidemia, unspecified (09/07/04) Hematuria (09/28/03) Actinic keratosis (05/24/03) Abdominal pain (09/28/03) Bladder outlet obstruction History of tobacco use Lower urinary tract symptoms Inguinal hernia bilateral, non-recurrent Rosacea Rheumatoid arthritis Sleep apnea Headache Leg pain Osteopenia MGUS (monoclonal gammopathy of unknown significance) Hearing loss Cataracts, bilateral Benign prostate hyperplasia Low testosterone Hypothyroidism (~1958) Hypertension Skin cancer Type 2 diabetes mellitus Hx of subdural hematoma Monoclonal gammopathies Polymyalgia rheumatica Hx of acute myocardial infarction (~2019) Dizziness Benign paroxysmal vertigo Surgical History H/O vasectomy Anesthesia Subdural hematoma (~08/2022) History of coronary artery stent placement (~2019) S/P TURP (~2020) Family History Mother Stroke Brother History of heart disease Stroke Grandfather History of heart disease Grandmother Tuberculosis Social History household members: spouse alcohol intake: never tobacco type: cigarettes Exam Narrative Exam Narrative: GENERAL: [89] year old patient appears stated age. Well-developed patient, in mild distress. HEAD: Atraumatic. Normocephalic. EYES: Pupils equal round and reactive. Extraocular motions intact. No scleral icterus. No injection or drainage. ENT: Nose without bleeding, purulent drainage. Throat without erythema, tonsillar hypertrophy or exudate. Airway patent. NECK: Trachea midline. Non tender CARDIOVASCULAR: Regular rate and rhythm without murmurs, gallops, or rubs. RESPIRATORY: Clear to auscultation. Breath sounds equal bilaterally. No wheezes, rales, or rhonchi. GASTROINTESTINAL: Abdomen soft, non-tender, nondistended. EXTREMITIES: No edema or joint tenderness. BACK: Nontender without deformity or crepitance. No flank tenderness. NEURO: AOx3. SKIN: No rash or erythema of visible areas Initial Vital Signs Initial Vital Signs: Vital Signs Temperature 97.4 F L 06/10/25 09:31 Pulse Rate 67 06/10/25 09:31 Respiratory Rate 16 06/10/25 09:31 Blood Pressure 172/80 H 06/10/25 09:31 Pulse Oximetry 91 06/10/25 09:31 Oxygen Delivery Method Room Air 06/10/25 09:31 Scores HEART Score Heart Score history: Moderately Suspicious Heart Score EKG: Non-Specific repolarization disturbance Heart Score Age: > or = 65 years old Heart Score risk factors: > 3 risk factors or hx of atherosclerotic disease Heart Score troponin: < or = to normal limit Heart Score Total: 6 Course Orders Ordered: ED Orders 06/10/25 09:30 Complete Blood Count AUTO DIFF Stat Comprehensive Metabolic Panel Stat Lipase Stat Magnesium Stat NT-proBNP (BNP-Adult 18+) Stat PTT Partial Thromboplastin Mono Stat Prothrombin Time INR Stat Troponin & CK Cardiac Panel Stat 06/10/25 09:31 XR chest 1V Stat EKG-12 Lead Stat 06/10/25 11:40 Troponin I Stat Nitroglycerin (Nitroglycerin 0.4 Mg Sl Tab) 0.4 mg SL [id number] PRN PRN Reason: Chest Pain Last Admin: 06/10/25 10:41 Dose: 0.4 mg Documented By: Admin: 06/10/25 10:32 Dose: 0.4 mg Documented By: RLJt Discontinued Medications Aspirin (Aspirin 81 Mg Chew Tab) 324 mg PO NOW ONE Stop: 06/10/25 09:32 Last Admin: 06/10/25 10:15 Dose: 243 mg Documented By: RUSTY Vital Signs Vital signs: Vital Signs - 8 hr 06/10/25 09:31 06/10/25 09:44 06/10/25 10:00 Temperature 97.4 F L Pulse Rate 67 56 L 54 L Respiratory Rate 16 23 21 Blood Pressure 172/80 H Pulse Oximetry 91 98 97 Oxygen Delivery Method Room Air 06/10/25 10:30 06/10/25 10:32 06/10/25 10:34 Temperature Pulse Rate 54 L 54 L Respiratory Rate 26 H Blood Pressure 136/68 136/68 Pulse Oximetry 98 Oxygen Delivery Method 06/10/25 10:34 06/10/25 10:36 06/10/25 10:36 Temperature Pulse Rate 54 L 54 L Respiratory Rate 23 26 H Blood Pressure 135/65 Pulse Oximetry 98 98 Oxygen Delivery Method 06/10/25 10:40 06/10/25 10:40 06/10/25 10:41 Temperature Pulse Rate 60 58 L Respiratory Rate 20 Blood Pressure 133/70 133/70 Pulse Oximetry 96 Oxygen Delivery Method 06/10/25 10:45 06/10/25 10:45 06/10/25 10:50 Temperature Pulse Rate 59 L Respiratory Rate 21 Blood Pressure 124/67 119/58 L Pulse Oximetry 96 Oxygen Delivery Method 06/10/25 10:50 06/10/25 10:55 06/10/25 10:55 Temperature Pulse Rate 54 L 57 L Respiratory Rate 26 H 24 Blood Pressure 125/60 Pulse Oximetry 97 96 Oxygen Delivery Method 06/10/25 11:00 06/10/25 11:00 06/10/25 11:05 Temperature Pulse Rate 53 L 58 L Respiratory Rate 20 26 H Blood Pressure 115/60 Pulse Oximetry 98 97 Oxygen Delivery Method 06/10/25 11:05 06/10/25 11:10 06/10/25 11:10 Temperature Pulse Rate 51 L Respiratory Rate 27 H Blood Pressure 127/63 119/62 Pulse Oximetry 98 Oxygen Delivery Method 06/10/25 11:15 06/10/25 11:15 06/10/25 11:20 Temperature Pulse Rate 52 L Respiratory Rate 27 H Blood Pressure 118/72 123/74 Pulse Oximetry 97 Oxygen Delivery Method 06/10/25 11:20 06/10/25 11:26 06/10/25 11:26 Temperature Pulse Rate 51 L 52 L Respiratory Rate 22 25 H Blood Pressure 112/63 Pulse Oximetry 97 97 Oxygen Delivery Method 06/10/25 11:30 06/10/25 11:30 06/10/25 11:35 Temperature Pulse Rate 51 L 49 L Respiratory Rate 24 19 Blood Pressure 119/63 Pulse Oximetry 97 97 Oxygen Delivery Method 06/10/25 11:35 06/10/25 11:40 06/10/25 11:40 Temperature Pulse Rate 48 L Respiratory Rate 20 Blood Pressure 116/64 124/70 Pulse Oximetry 99 Oxygen Delivery Method 06/10/25 11:45 06/10/25 11:45 06/10/25 11:50 Temperature Pulse Rate 51 L Respiratory Rate 20 Blood Pressure 115/61 112/62 Pulse Oximetry 97 Oxygen Delivery Method 06/10/25 11:50 06/10/25 11:55 06/10/25 11:55 Temperature Pulse Rate 51 L 48 L Respiratory Rate 21 25 H Blood Pressure 118/63 Pulse Oximetry 98 98 Oxygen Delivery Method 06/10/25 12:00 06/10/25 12:00 06/10/25 12:05 Temperature Pulse Rate 49 L 51 L Respiratory Rate 19 24 Blood Pressure 129/68 Pulse Oximetry 98 98 Oxygen Delivery Method 06/10/25 12:05 06/10/25 12:10 06/10/25 12:10 Temperature Pulse Rate 48 L Respiratory Rate 20 Blood Pressure 122/66 124/72 Pulse Oximetry 98 Oxygen Delivery Method 06/10/25 12:15 06/10/25 12:15 Temperature Pulse Rate 49 L Respiratory Rate 16 Blood Pressure 114/68 Pulse Oximetry 98 Oxygen Delivery Method MDM - Chest Pain Lab Data 06/10/25 09:30 06/10/25 09:30 Labs: Lab Results 06/10/25 06/10/25 Range/Units 09:30 11:40 WBC 7.9 (4.5-11.0) X10^3/uL RBC 4.50 (4.5-5.9) X10^6/uL Hgb 14.4 (13.5-17.5) g/dL Hct 42.2 (41-53) % MCV 93.7 (80-100) fL MCH 31.9 (26-34) PG MCHC 34.0 (30-36) % RDW 13.4 (11.6-14.8) % Plt Count 185 (150-400) X10^3/uL Neut % (Auto) 63.8 (50-75) % Lymph % (Auto) 24.5 L (25-40) % [place] % (Auto) 9.0 (3-14) % Eos % (Auto) 1.7 L (2-4) % Baso % (Auto) 1.0 (0-2) % Neut # (Auto) 5000 (7394-5967) /uL Lymph # (Auto) 1900 (6757-7665) /uL [place] # (Auto) 700 (0-900) /uL Eos # (Auto) 100 (0-450) /uL Baso # (Auto) 100 (0-100) /uL PT 11.2 (9.4-12.5) SECONDS INR 1.0 (0.9-1.3) APTT 20 L (25.1-36.5) SECONDS Sodium 140 (137-145) mmol/L Potassium 4.3 (3.4-5.1) mmol/L Chloride 103 (98-107) mmol/L Carbon Dioxide 25 (22-32) mmol/L BUN 29 H (9-20) mg/dL Creatinine 0.93 (0.66-1.25) mg/dL Estimated GFR > 60 (>60) mL/min BUN/Creatinine Ratio 31.2 H (6-22) Glucose 228 H (70-99) mg/dL Calcium 9.6 (8.4-10.2) mg/dL Magnesium 1.8 (1.6-2.3) mg/dL Total Bilirubin 0.5 (0.2-1.3) mg/dL AST 29 (17-59) IU/L ALT 21 (<50) IU/L Alkaline Phosphatase 69 (38-126) U/L Total Creatine Kinase 41 L (55-170) U/L Troponin I 0.028 0.023 (0.01-0.034) ng/mL NT-Pro-B Natriuret Pep 317 (<450) pg/mL Total Protein 7.3 (6.3-8.2) g/dL Albumin 4.5 (3.5-5.0) g/dL Globulin 2.8 (1.7-4.1) g/dL Albumin/Globulin Ratio 1.6 (1.0-2.8) Lipase 89 (23-300) U/L ECG Data Interpretation: Sinus Johnny HR 57 NJ 146 QRS [address]-t wave change Unchanged from 05/27/25 MDM Narrative Medical decision making narrative: All lab work, vital signs, nurse triage note, medication list, previous ER visits, and all imaging studies reviewed. First set troponin 0.028 and 2nd set 0.023 chest EKG showed sinus bradycardia at 57 with no ischemic changes. Heart Score 6. Differential diagnosis STEMI NSTEMI unstable angina. Patient given aspirin and 2 nitro completely pain free at this time. 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 Schedule appointment and to increase Mononitrate to 60mg per . Discharge Plan Departure Patient Disposition: Home Clinical Impression: Chest pain Instructions: DI for Chest Pain Activity Restrictions/Additional Instructions: Return with new or worsening symptoms. Follow up with Dr.Parmar Milly BOWDEN call office for appointment. Increase mononitrate to 60mg daily. Prescriptions: No Action clopidogrel 75 mg tablet 75 mg PO DAILY ezetimibe 10 mg tablet 10 mg PO DAILY isosorbide mononitrate 30 mg tablet extended release 24 hr 30 mg PO DAILY gabapentin 100 mg capsule 100 - 300 mg PO ONCE PM aspirin 81 MG tablet,delayed release (DR/EC) 81 mg PO QDAY Qty: 0 metformin 500 mg tablet 500 mg PO DAILY Qty: 90 3RF losartan 25 mg tablet 25 mg PO DAILY Qty: 90 3RF levothyroxine 75 mcg tablet 75 mcg PO DAILY Qty: 90 3RF hydrocodone-acetaminophen 5-325 mg tablet 1 tab PO Q6H PRN (Reason: pain) Qty: 7 0RF metoprolol succinate 25 mg tablet extended release 24 hr 12.5 mg PO DAILY Fish Oil 120-180 mg Capsule 1 cap PO DAILY vit C-vit U-uruzvt-jhh-om-3 [id number] ad-wjhd-ap-mg Capsule 1 cap PO DAILY nitroglycerin 0.4 mg tablet, sublingual 0.4 mg sublingual Q5M PRN (Reason: chest pain) Qty: 20 0RF Rx Instructions: do not exceed 3 doses per episode Repatha SureClick 140 mg/mL pen injector 140 mg SUBCUT Q2W furosemide [Lasix] 20 mg tablet 20 mg PO DAILY Qty: 2 0RF Referrals: Devi Prieto MD [Primary Care Provider, Family Practice] Stand Alone Forms: Patient Portal/API
--- NOTE | 2025-06-10 09:31 | DI.RAD.S_ITS ---
PROCEDURE: XR CHEST 1V INDICATIONS: Chest Pain TECHNIQUE: One view of the chest was acquired. COMPARISON: [facility], CR, XR CHEST 1V, 05/27/2025, 10:22. FINDINGS: Surgical changes and devices: None. Lungs and pleura: Lungs are clear. No pleural effusions or pneumothorax. Mediastinum: Mediastinal contours appear normal. Heart size is normal. Bones and chest wall: No suspicious bony lesions. Overlying soft tissues appear unremarkable. IMPRESSION: No acute cardiopulmonary abnormality is seen. Dictated by: Braden Aguero M.D. on 06/10/2025 at 9:54 Approved by: Braden Aguero M.D. on 06/10/2025 at 9:54
--- NOTE | 2025-06-10 09:34 | EKG_ITS ---
[address] [address] Test Date: 2025-06-10 Pat Name: Sameer Xavier Department: Room: Gender: Male Consulting Psychologist: JOHN : 1935 Requested By: Order Number: [id number] Reading MD: Edinson Estrada MD Measurements Intervals [place] Rate: 57 P: 43 [place]: 146 QRS: -17 QRSD: 82 T: 140 QT: 438 QTc: 426 Interpretive Statements Sinus bradycardia Minimal voltage criteria for LVH, may be normal variant ( R in aVL ) T wave abnormality, consider lateral ischemia Electronically Signed On 06-10-2025 11:00:35 PST by Edinson Estrada MD
[2025-06-10 09:43] LABS: Add Manual Diff / Slide Review NO; Hematocrit 42.2 % (41-53); Hemoglobin 14.4 g/dL (13.5-17.5); Lymphocytes Absolute Auto 1900 /uL (1100-4500); Mean Corpuscular HGB Conc 34.0 % (30-36); Mean Corpuscular Hemoglobin 31.9 PG (26-34); Mean Corpuscular Volume 93.7 fL (80-100); Platelet Count 185 X10^3/uL (150-400)
[2025-06-10 09:49] LABS: INR 1.0 (0.9-1.3); Prothrombin Time 11.2 SECONDS (9.4-12.5)
[2025-06-10 09:52] LABS: PTT Partial Thromboplastin Tim 20 SECONDS (25.1-36.5)
[2025-06-10 09:54] LABS: Alanine Aminotransferase 21 IU/L (<50); Albumin 4.5 g/dL (3.5-5.0); Albumin Globulin Ratio 1.6 (1.0-2.8); Alkaline Phosphatase 69 U/L (38-126); Blood Urea Nitrogen 29 mg/dL (9-20); Calcium 9.6 mg/dL (8.4-10.2); Carbon Dioxide 25 mmol/L (22-32); Chloride 103 mmol/L (98-107); Creatine Kinase 41 U/L (55-170); Estimated Glomerular Filt Rate > 60 mL/min (>60); Globulin 2.8 g/dL (1.7-4.1); Glucose 228 mg/dL (70-99); HEMOLYSIS < 15 (0-50); Lipase 89 U/L (23-300); Magnesium 1.8 mg/dL (1.6-2.3); Potassium 4.3 mmol/L (3.4-5.1); Sodium 140 mmol/L (137-145); Total Protein 7.3 g/dL (6.3-8.2)
[2025-06-10 10:06] LABS: NT-proBNP (BNP-Adult 18+) 317 pg/mL (<450); Troponin I 0.028 ng/mL (0.01-0.034)
[2025-06-10] MEDS: ASPIRIN 81 MG CHEW TAB 324 MG PO (10:15)
[2025-06-10] MEDS: NITROGLYCERIN 0.4 MG SL TAB SL ×2 (10:32→10:41)
[2025-06-10 12:08] LABS: Troponin I 0.023 ng/mL (0.01-0.034)
== END 2025-06-10 13:32 | disposition home or self-care (01) ==
PROVIDERS: Emergency Provider Family Medicine; PCP Student in an Organized Health Care Education/Training Program
DX: R07.89 Other chest pain (principal); E11.9 Type 2 diabetes mellitus without complications; I10 Essential (primary) hypertension
CPT/HCPCS: 36415; 71045; 80053; 82550; 83690; 83735; 83880; 84484; 85025; 85610; 85730; 93005; 99284